=== PATIENT | female | born 1950 | race Caucasian/White ===

== ENCOUNTER 2019-11-22 14:50 | Observation (INO) | payer MEDICARE, OTHER, SELFPAY ==
[2019-11-22 14:52] VITALS: BP 155/73; PULSE 52; RESP 18; O2SAT 97; BMI 28.1
--- NOTE | 2019-11-22 15:08 | ECG_ITS ---
Measurements Intervals Avis Rate: 51 P: 62 AK: 193 QRS: 52 QRSD: 86 T: 79 QT: 410 QTc: 378 SINUS BRADYCARDIA POSSIBLE ANTERIOR MYOCARDIAL INFARCTION, PROBABLY OLD Compared to ECG 12/31/2018 19:50:46 Sinus tachycardia no longer present Myocardial infarct finding still present Electronically Signed On 11-22-2019 17:28:04 TREE GIRDLER by Natalia Stanford M.D. [id number]
[2019-11-22 15:22] LABS: Basophils % 0.5 %; Eosinophils # 0.3 10^3/uL (0.0-0.8); Eosinophils % 5.3 %; Hematocrit 42.8 % (37.0-47.0); Hemoglobin 13.6 g/dL (11.5-15.3); Lymphocytes # 1.8 10^3/uL (0.8-4.8); Lymphocytes % 28.3 %; Mean Corpuscular HGB Conc 31.8 g/dL (30.0-36.0); Mean Corpuscular Volume 94.5 fL (81-99); Mean Platelet Volume 12.1 fL (7.4-10.4); Monocytes # 0.6 10^3/uL (0.2-0.9); Monocytes % 9.1 %; Neutrophils # 3.6 10^3/uL (1.8-7.7); Neutrophils % 56.5 %; Nucleated Red Blood Cells % 0 %; Platelet Count 196 10^3/cmm (130-400); Red Blood Count 4.53 10^6/uL (4.1-5.3); Red Cell Distribution Width 13.2 % (12.1-15.1); White Blood Count 6.4 10^3/uL (4.0-10.0)
[2019-11-22 15:31] LABS: INR 1.02 (0.8-1.2); Partial Thromboplastin Time 27.7 SECONDS (23.9-36.7)
[2019-11-22 15:34] LABS: D Dimer <= 0.27 ug/mIFEU (0-0.59)
[2019-11-22 15:43] LABS: Troponin(5th) Baseline 10 ng/mL (0-10)
[2019-11-22 15:48] LABS: Alanine Aminotransferase 17 U/L (0-33); Albumin Level 4.4 g/dL (3.5-5.2); Alkaline Phosphatase 80 IU/L (35-105); Anion Gap 15.7 (5-19); Aspartate Amino Transferase 22 U/L (0-32); Blood Urea Nitrogen 23 mg/dL (8-23); Calcium 10.4 mg/dL (8.5-10.5); Carbon Dioxide 26 mmol/L (22-29); Chloride 105 mmol/L (98-107); Creatine Phosphokinase 67 U/L (26-192); Globulin 2.7 g/dL (1.3-4.6); Glomerular Filtration Rate 54.8 mL/min (90-130); Glucose 127 mg/dL (65-115); Lipase 34 U/L (13-60); NT Pro B Type Natriuretic Pept 272 pg/mL (0-125); Potassium 3.7 mmol/L (3.5-5.1); Sodium 143 mmol/L (136-145); Total Bilirubin 0.2 mg/dL (0.15-1.2); Total Protein 7.1 g/dL (6.6-8.7)
--- NOTE | 2019-11-22 16:38 | ED_ITS ---
Entered by Shivani Reese, acting as scribe for Brennen Cherry DO Nov 22, 2019 14:50 HPI - General Adult General: Chief complaint: General Medical Stated complaint: left arm pain Time Seen by Provider: 11/22/19 16:38 Source: patient and family Mode of arrival: ambulatory Limitations: no limitations History of Present Illness: HPI narrative: 69 yo female presents with L arm pain. pt states this started today. pt states this is worsened with exertion or movement. pt states this occurred when she had a triple bypass so she wanted to be checked out. pt has a hx of a triple bypass. pt denies any other symptoms at this time. MD complaint: L arm pain Onset (ago): hour(s) (today) Location: upper extremity (L arm) Radiation: non-radiation Severity: mild Pain Consistency: constant Relieving factors: none Exacerbating factors: movement (walking, exertion) Associated symptoms: Reports no associated symptoms; Deny chest pain, dyspnea, malaise, nausea, rash or vomiting Treatments prior to arrival: none Review of Systems General: Reports: 10 or more systems reviewed and unremarkable except in HPI and below Const: Denies: fever, chills, body aches, change in appetite, fatigue or malaise ENMT: Denies: throat pain, ear pain, nasal discharge or nasal congestion Card: Denies: chest pain, edema, shortness of breath on exertion or shortness of breath when lying down Resp: Denies: shortness of breath, productive cough or non-productive cough GI: Denies: abdominal pain, nausea, vomiting, vomiting blood, coffee grounds in vomit, diarrhea, constipation, bloating, blood in stool or black tarry stool : Denies: flank pain, difficulty urinating, painful urination, urinary frequency or urinary urgency Skin/Breast: Denies: rash or itching PFSH ED PFSH: Medical History Chronic diastolic CHF (congestive heart failure) -Has history of chronic diastolic CHF, no acute exacerbation -Last echo done in December 2018 showed ejection fraction of 58%, mild concentric LVH, G1DD, mild mid anterior and lateral wall hypokinesis, mild pulmonary hypertension (52), mild MR, moderate TR, mild [place] -no evidence of edema, fluid overload, BNP-272 CKD (chronic kidney disease), stage II -Has known history of CKD stage II, baseline creatinine within normal limits -mild superimposed ALEXANDER resolved -Continue to monitor renal function Coronary artery disease -Has known history of CAD status post CABG approximately a year ago as noted above Hyperlipidemia -continue statin Mild pulmonary hypertension Pulmonary emboli -had PE shortly after CABG in 12/2018 -has been on AC with Eliquis since then; will discuss with PCP or Dr. Cornell on discontinuation of this as she has been on treatment for > 1 yr -negative D-dimer Surgical History History of heart bypass surgery S/P cholecystectomy Family History Father CAD (coronary artery disease) Mother CAD (coronary artery disease) Congestive heart failure Social History Smoking and tobacco status: never smoked Alcohol intake: never Household members: spouse Physical Exam Const: COMMON NORMALS: no apparent distress GENERAL APPEARANCE: cooperative and comfortable ORIENTATION/CONSCIOUSNESS: Yes awake, Yes oriented to person, Yes oriented to place and Yes oriented to time HENMT: COMMON NORMALS: normocephalic, head/scalp atraumatic, hearing grossly normal bilaterally, external ears normal, EAC's normal, TM's normal bilaterally, nasal mucous membranes and turbinates normal, moist oral mucous membranes and oropharynx normal HEAD & SCALP: normocephalic and atraumatic NOSE: nasal mucous membranes and turbinates normal EXTERNAL EAR: Yes external ears normal EXTERNAL AUDITORY CANAL: EAC's normal TYMPANIC MEMBRANE: TM's normal bilaterally Eye: COMMON NORMALS: PERRL, EOMs intact bilaterally, conjunctivae normal and no scleral icterus CONJUNCTIVA: Yes conjunctivae normal PUPIL: Yes PERRL Neck/C-Spine: COMMON NORMALS: full ROM, no lymphadenopathy, supple and no JVD Lymph: LYMPHATIC: no lymphadenopathy noted and no lymphedema noted Resp: COMMON NORMALS: normal respiratory effort, no retractions, no use of accessory muscles and clear to auscultation bilaterally AUSCULTATION: clear to auscultation bilaterally Cardio: COMMON NORMALS: no JVD, regular rate, regular rhythm and no murmurs RATE: regular rate RHYTHM: regular rhythm GI: COMMON NORMALS: soft to palpation and no hepatosplenomegaly AUSCULTATION: Yes normoactive bowel sounds PALPATION: Yes soft, No tender, No guarding and Yes no hepatosplenomegaly Extremity: COMMON NORMALS: normal to inspection, normal capillary refill, no clubbing, cyanosis or edema, no calf tenderness and no pedal edema LEFT UPPER EXTREMITY: Yes upper arm (tenderness) Neuro: SENSORIUM/ORIENTATION: Yes oriented to person, Yes oriented to place and Yes oriented to time Skin: COMMON NORMALS: no rashes or lesions noted GENERAL SKIN EXAM: no rashes or lesions noted Course ED course: Patient has a moderately elevated heart score with her symptoms being brought on by exertion and think we will go ahead and put her in for rule out PA. Discussed with Dr. Amin she will see the patient inpatient side. Vital Signs: Vital signs: Vital Signs Temperature 97.7 F 11/23/19 17:02 Pulse Rate 47 L 11/23/19 17:02 Respiratory Rate 16 11/23/19 17:02 Blood Pressure 114/65 11/23/19 17:02 Pulse Oximetry 95 11/23/19 17:02 [facility] - General Adult Lab Data: Labs: Lab Results 11/22/19 11/22/19 11/22/19 Range/Units 15:15 15:15 15:15 WBC 6.4 (4.0-10.0) 10^3/ uL RBC 4.53 (4.1-5.3) 10^6/u L Hgb 13.6 (11.5-15.3) g/dL Hct 42.8 (37.0-47.0) % MCV 94.5 (81-99) fL MCH 30.0 (28.0-34.0) pg MCHC 31.8 (30.0-36.0) g/dL RDW 13.2 (12.1-15.1) % Plt Count 196 (130-400) 10^3/c mm MPV 12.1 H (7.4-10.4) fL Neut % (Auto) 56.5 % Lymph % (Auto) 28.3 % [place] % (Auto) 9.1 % Eos % (Auto) 5.3 % Baso % (Auto) 0.5 % Neut # (Auto) 3.6 (1.8-7.7) 10^3/u L Lymph # (Auto) 1.8 (0.8-4.8) 10^3/u L [place] # (Auto) 0.6 (0.2-0.9) 10^3/u L Eos # (Auto) 0.3 (0.0-0.8) 10^3/u L Baso # (Auto) 0.0 (0.0-0.1) 10^3/u L Nucleated RBC % (a uto) 0 % Nucleated RBCs # 0.0 /100WBC PT 13.70 H (10.5-13.3) SECO NDS INR 1.02 (0.8-1.2) APTT 27.7 (23.9-36.7) SECO NDS D-Dimer <= 0.27 (0-0.59) ug/mIFE U Sodium 143 (136-145) mmol/L Potassium 3.7 (3.5-5.1) mmol/L Chloride 105 (98-107) mmol/L Carbon Dioxide 26 (22-29) mmol/L Anion Gap 15.7 (5-19) BUN 23 (8-23) mg/dL Creatinine 1.0 H (0.5-0.9) mg/dL GFR Calculation 54.8 L (90-130) mL/min Glucose 127 H (65-115) mg/dL Calcium 10.4 (8.5-10.5) mg/dL Total Bilirubin 0.2 (0.15-1.2) mg/dL AST 22 (0-32) U/L ALT 17 (0-33) U/L Alkaline Phosphata se 80 (35-105) IU/L Creatine Kinase 67 (26-192) U/L Troponin T Baselin e (0-10) ng/mL Troponin T 120 Min [place] (0-10) ng/mL Delta Troponin T (0-10) ABS# NT-Pro-B Natriuret Pep 272 H (0-125) pg/mL Total Protein 7.1 (6.6-8.7) g/dL Albumin 4.4 (3.5-5.2) g/dL Globulin 2.7 (1.3-4.6) g/dL Lipase 34 (13-60) U/L 02/19/20 02/19/20 Range/Units 15:15 17:09 WBC (4.0-10.0) 10^3/ uL RBC (4.1-5.3) 10^6/u L Hgb (11.5-15.3) g/dL Hct (37.0-47.0) % MCV (81-99) fL MCH (28.0-34.0) pg MCHC (30.0-36.0) g/dL RDW (12.1-15.1) % Plt Count (130-400) 10^3/c mm MPV (7.4-10.4) fL Neut % (Auto) % Lymph % (Auto) % [place] % (Auto) % Eos % (Auto) % Baso % (Auto) % Neut # (Auto) (1.8-7.7) 10^3/u L Lymph # (Auto) (0.8-4.8) 10^3/u L [place] # (Auto) (0.2-0.9) 10^3/u L Eos # (Auto) (0.0-0.8) 10^3/u L Baso # (Auto) (0.0-0.1) 10^3/u L Nucleated RBC % (a uto) % Nucleated RBCs # /100WBC PT (10.5-13.3) SECO NDS INR (0.8-1.2) APTT (23.9-36.7) SECO NDS D-Dimer (0-0.59) ug/mIFE U Sodium (136-145) mmol/L Potassium (3.5-5.1) mmol/L Chloride (98-107) mmol/L Carbon Dioxide (22-29) mmol/L Anion Gap (5-19) BUN (8-23) mg/dL Creatinine (0.5-0.9) mg/dL GFR Calculation (90-130) mL/min Glucose (65-115) mg/dL Calcium (8.5-10.5) mg/dL Total Bilirubin (0.15-1.2) mg/dL AST (0-32) U/L ALT (0-33) U/L Alkaline Phosphata se (35-105) IU/L Creatine Kinase (26-192) U/L Troponin T Baselin e 10 (0-10) ng/mL Troponin T 120 Min [place] 9.02 (0-10) ng/mL Delta Troponin T -0.98 L (0-10) ABS# NT-Pro-B Natriuret Pep (0-125) pg/mL Total Protein (6.6-8.7) g/dL Albumin (3.5-5.2) g/dL Globulin (1.3-4.6) g/dL Lipase (13-60) U/L Discharge Plan Discharge Patient Disposition: Admitted As Inpatient Admit Provider: Rita Amin Condition: Stable Discharge Orders: Discharge Order (Routine); Ordered 11/23/19 Ordered By: Rita Amin Referrals: Fabiola Johnson MD [Primary Care Provider] - 11/29/19 9:00 am (Post-hospital discharge follow up; negative nuclear stress testing; started on Imdur 30 mg daily) Discharge Diet: Cardiac Discharge Activity: Resume usual activity Patient Instructions: Nitroglycerin, Rapid Release (By mouth), Isosorbide Mon onitrate (By mouth), Heart Failure (DC), Coronary Artery Disease (DC), Pulmonary Embolism (DC), Chronic Kidney Disease (DC), Hyperlipidemia (DC), CHF Stoplight Discharge Date/Time: 11/22/19 20:17 Coding Level of Care Code ED Oil Lease Broker for Chg Fwd Exam Problem Focused The documentation recorded by the Hugh hunt Bridget Annette, accurately reflects the service I personally performed and the decisions made by Dilip acosta Curtis L, Nov 22, 2019 14:50
[2019-11-22 16:48] VITALS: BP 170/80; PULSE 61; RESP 18; O2SAT 99
[2019-11-22 16:50] VITALS: RESP 18
--- NOTE | 2019-11-22 16:58 | XR_ITS ---
WS: [id number] XR chest 1V portable [id number] REASON FOR EXAM: dyspnea/cough FINDINGS: Previous sternotomy changes and coronary bypass findings. A hiatal hernia is noted. The lung cary are well-aerated. There is no pneumonia, pleural effusion, pulmonary edema, or mass e ffect. No osseous abnormalities. The hilum and apices are normal. Arteriosclerotic changes in the arch of the aorta are noted. XR/XR chest 1V portable [id number] IMPRESSION: Arteriosclerotic changes Previous coronary bypass findings. Hiatal hernia.
--- NOTE | 2019-11-22 17:08 | ECG_ITS ---
Measurements Intervals Moore Rate: 45 P: 57 TN: 215 QRS: 54 QRSD: 97 T: 110 QT: 424 QTc: 367 SINUS BRADYCARDIA WITH FIRST DEGREE AV BLOCK MODERATE ST DEPRESSION [0.05+ mV ST DEPRESSION] Compared to ECG 12/31/2018 19:50:46 First degree AV block now present ST (T wave) deviation now present Sinus tachycardia no longer present Myocardial infarct finding no longer present Electronically Signed On 11-22-2019 17:29:44 SENIOR ADMINISTRATIVE ASSISTANT by Natalia Stanford M.D. [id number]
[2019-11-22 17:30] LABS: Troponin 5 2HR 9.02 ng/mL (0-10); Troponin 5 2HR Delta -0.98 ABS# (0-10)
--- NOTE | 2019-11-22 18:50 | PM.HP ---
Providers/Chief Complaint Admitting Physician: Rita Amin MD Primary Care Provider: Fabiola Johnson MD Chief Complaint: left arm pain History of Present Illness Mery Green is a 69 year old female with PMHx of CAD s/p CABG (12/2018), provoked PE (on Eliquis), HTN, Hyperlipidemia, GERD, CKD stage 2; presents with complaints of left upper extremity pain with exertion associated with shortness of breath. Patient is known to me from previous admission in December of last year during which time she had presented with similar symptoms and was found to have CAD requiring CABG at which point she was transferred to [facility] where she had her surgery. Her postop recovery was complicated by PE and she has been on anticoagulation with Eliquis since then. She did well with her cardiac rehab and has been trying to stay active since her surgery. She typically takes a walk with her which is typically a long country roads with noted incline at which point she typically gets quite short of breath and had not had any pain until this past Wednesday. She states that she and her had walked approximately a fourth of a mile when she started to have left upper extremity pain. After short while she stopped and they walked back to the house at which point she was able to sit down and rest and her pain resolved. She did not resume her daily walks until earlier today when the same thing happened once she got to an incline. She stopped sooner this time and after resting for a few minutes her pain resolved. He does not seem to have reproduction of this left upper extremity pain when walking on level ground. She contacted her doctor's office in [facility] but was unable to reach them so contacted Dr. Cornell's office and was referred to the ER for further evaluation. She noticed that while taking the stairs on her way to the ER, the left upper extremity discomfort returned. She denies having had any chest pain or discomfort. This shortness of breath that she experiences with her walks is a chronic thing that she has noticed since her surgery. She denies having had any cough, fever/chills, nausea/vomiting, numbness or tingling in her extremities, feeling dizzy or lightheaded, palpitations. She had an episode of reflux approximately 2 days ago but this was relieved after she took antacids and has not recurred since. She is unsure if this is related to her left upper extremity symptoms. She reports compliance with her medication regimen and denies any recent changes. Work-up in the ER showed a normal CBC, normal chemistry except for slight creatinine elevation at 1.0, glucose of 127. Initial troponin is 10, 2-hour troponin is 9.02 with noted negative delta. Chest x-ray is unremarkable per my review the report is pending. EKGs show sinus bradycardia with first-degree AV block. She is currently hemodynamically stable with a heart rate in the 40-50 range. She is currently asymptomatic and resting comfortably on the stretcher during my assessment in the ER. is at bedside. Discussed the possibility that this left upper extremity discomfort is an anginal equivalent that would require further work-up including stress testing which she is agreeable to. Review of Systems Const: Reports: fatigue; Denies: fever, chills, change in appetite or diaphoresis Eyes: Denies: change in vision ENMT: Denies: painful swallowing or dry mouth Card: Reports: shortness of breath on exertion and other (LUE pain with exertion); Denies: chest pain, edema, swelling of feet/ankles or lightheadedness Resp: Denies: shortness of breath or productive cough GI: Reports: constipation (takes laxatives); Denies: abdominal pain, nausea, vomiting, vomiting blood, heartburn/indigestion or blood in stool : Denies: difficulty urinating, painful urination or urinary frequency Musc: Reports: extremity pain (LUE); Denies: back pain Skin/Breast: Denies: rash Neuro: Reports: other (tremor in LUE); Denies: numbness in extremities or weakness in extremities Psych: Denies: anxiety Medications/Allergies Home Medications Medication Instructions Recorded Confirmed Last Taken Type apixaban [Eliquis] 5 mg PO BID 11/22/19 11/22/19 11/22/19 History aspirin [Aspir-81] 81 mg PO DAILY 11/22/19 11/22/19 11/22/19 History calcium carbonate [Calcium 600] 600 mg PO BID 11/22/19 11/22/19 11/22/19 History cholecalciferol (vitamin D3) 25 mcg PO DAILY 11/22/19 11/22/19 11/22/19 History [Vitamin D3] docusate sodium [Colace] 100 mg PO DAILY 11/22/19 11/22/19 11/22/19 History hydrochlorothiazide 25 mg PO DAILY 11/22/19 11/22/19 11/22/19 History metoprolol succinate 25 mg PO DAILY 11/22/19 11/22/19 11/22/19 History omeprazole 20 mg PO DAILY 11/22/19 11/22/19 11/22/19 History rosuvastatin 20 mg PO DAILY 11/22/19 11/22/19 11/22/19 History Allergies Allergy/AdvReac Type Severity Reaction Status Date / Time No Known Allergies Allergy Unverified 11/22/19 09:45 PFSH Acute PFSH: Medical History (Updated 11/22/19 @ 19:02 by Rita Amin MD) Chronic diastolic CHF (congestive heart failure) CKD (chronic kidney disease), stage II Coronary artery disease Hyperlipidemia Mild pulmonary hypertension Pulmonary emboli Post CABG, on anticoagulation with Eliquis Surgical History (Updated 11/22/19 @ 18:56 by Rita Amin MD) History of heart bypass surgery S/P cholecystectomy Family History (Updated 11/22/19 @ 18:56 by Rita Amin MD) Father CAD (coronary artery disease) Mother CAD (coronary artery disease) Congestive heart failure Social History (Updated 11/22/19 @ 18:56 by Rita Amin MD) Smoking and tobacco status: never smoked Alcohol intake: never Substance/Drug Use: never Household members: spouse Vitals/I&O/Wt Last Vital Signs Pulse 61 11/22/19 16:48 Resp 18 11/22/19 16:50 BP 170/80 11/22/19 16:48 Pulse Ox 99 11/22/19 16:48 Weight last 48 hrs Weight 74.389 kg Physical Exam Const: COMMON NORMALS: no apparent distress and oriented x3 GENERAL APPEARANCE: cooperative and comfortable ORIENTATION/CONSCIOUSNESS: Yes awake HENMT: COMMON NORMALS: normocephalic, head/scalp atraumatic, hearing grossly normal bilaterally and moist oral mucous membranes HEAD & SCALP: normocephalic and atraumatic Eye: COMMON NORMALS: PERRL, EOMs intact bilaterally and conjunctivae normal CONJUNCTIVA: Yes conjunctivae normal PUPIL: Yes PERRL Neck/C-Spine: COMMON NORMALS: full ROM GENERAL: Yes normal visual inspection and Yes trachea midline Chest: COMMONS NORMALS: palpation of chest normal CHEST: Yes scars (Healed sternotomy scar) Resp: COMMON NORMALS: normal respiratory effort, no retractions, no use of accessory muscles and clear to auscultation bilaterally EFFORT & INSPECTION: Yes able to speak in complete sentences, Yes symmetric chest movement and No tachypneic AUSCULTATION: clear to auscultation bilaterally Cardio: COMMON NORMALS: regular rate, regular rhythm, S1 normal heart sound, S2 normal heart sound and no murmurs RATE: regular rate RHYTHM: regular rhythm HEART SOUNDS: S1 normal and S2 normal GI: COMMON NORMALS: normal to inspection, nondistended, normoactive bowel sounds, soft to palpation and non-tender PALPATION: Yes soft Back/Pelvis: COMMON NORMALS: thoracic and lumbar spine normal to inspection Extremity: COMMON NORMALS: normal to inspection, full ROM and no clubbing, cyanosis or edema; negative for no pedal edema Neuro: COMMON NORMALS: oriented x3, moves all extremities, no focal motor deficits and no sensory deficits noted Psych: COMMON NORMALS: mental status grossly normal, thought process normal, cooperative, affect normal and speech normal SPEECH: Yes normal speech THOUGHT PROCESS: normal thought process Skin: COMMON NORMALS: no rashes or lesions noted, no jaundice, no petechiae and no mottling GENERAL SKIN EXAM: no rashes or lesions noted Data : 11/22/19 15:15 11/22/19 15:15 A&P Assessment and plan (1) Left upper limb pain: -From description provided seems to be anginal equivalent, she experiences left upper extremity pain when she exerts particularly if walking up an incline or taking the stairs; no chest pain or discomfort. Associated with shortness of breath though this is more chronic -Has known history of CAD status post CABG about a year ago done by Dr. Ulloa at [facility] in [place] -Serial troponins, so far delta is negative -Serial EKGs -Telemetry monitoring -Monitoring of vital signs; intermittently bradycardic -ISRA -Resume aspirin, beta-diana, statin -Stress testing in a.m. keep n.p.o. after midnight Status: Acute Code(s): M79.602 - Pain in left arm (2) Coronary artery disease: -Has known history of CAD status post CABG approximately a year ago as noted above Status: Acute Qualifiers: Coronary Disease-Associated Artery/Lesion type: unspecified vessel or lesion type [place] vs. transplanted heart: [place] heart Associated angina: with other forms of angina Qualified Code(s): I25.118 - Atherosclerotic heart disease of [place] coronary artery with other forms of angina pectoris Code(s): I25.10 - Atherosclerotic heart disease of [place] coronary artery without angina pectoris (3) CKD (chronic kidney disease), stage II: -Has known history of CKD stage II, baseline creatinine within normal limits -mild superimposed ALEXANDER currently -Continue to monitor renal function Status: Acute Code(s): N18.2 - Chronic kidney disease, stage 2 (mild) (4) Chronic diastolic CHF (congestive heart failure): -Has history of chronic diastolic CHF, no acute exacerbation -Last echo done in December 2018 showed ejection fraction of 58%, mild concentric LVH, G1DD, mild mid anterior and lateral wall hypokinesis, mild pulmonary hypertension (52), mild MR, moderate TR, mild [place] -no evidence of edema, fluid overload, BNP-272 Status: Acute Code(s): I50.32 - Chronic diastolic (congestive) heart failure (5) Hyperlipidemia: -resume statin Status: Acute Qualifiers: Hyperlipidemia type: unspecified Qualified Code(s): E78.5 - Hyperlipidemia, unspecified Code(s): E78.5 - Hyperlipidemia, unspecified (6) Pulmonary emboli: -had PE shortly after CABG in 12/2018 -has been on AC with Eliquis since then -negative D-dimer Status: Acute Qualifiers: Pulmonary embolism type: unspecified Chronicity: chronic Acute cor pulmonale presence: unspecified Qualified Code(s): I27.82 - Chronic pulmonary embolism Code(s): I26.99 - Other pulmonary embolism without acute cor pulmonale Additional A&P Information -cardiac diet tonight, NPO after midnight -GI ppx with PPI -DVT ppx not needed as on Eliquis -Dispo: home -Code status: FULL code Attestations Medical Necessity Statement*: Mery Ya Green's hospital stay will be less than 2 midnights for management of anginal equivalent requiring ACS workup including nuclear stress testing in AM. Time Spent in Patient Care: Greater than 35 minutes (>than 50% of time spent in counselling and/or direct pt care on unit). Coding Level of Care Code Acute Gas Load Dispatcher for Chg Fwd Diagnoses Left upper limb pain M79.602 Coronary artery disease I25.118 Coronary Disease-Associated Artery/Lesion type: unspecified vessel or lesion type [place] vs. transplanted heart: [place] heart Associated angina: with other forms of angina CKD (chronic kidney disease), stage II N18.2 Chronic diastolic CHF (congestive heart failure) I50.32 Hyperlipidemia E78.5 Hyperlipidemia type: unspecified Pulmonary emboli I27.82 Pulmonary embolism type: unspecified Chronicity: chronic Acute cor pulmonale presence: unspecified
[2019-11-22 19:48] VITALS: BP 143/72; PULSE 48; RESP 18; O2SAT 96
[2019-11-22 20:16] VITALS: BP 148/62; PULSE 52; RESP 18; O2SAT 97
[2019-11-22 20:33] VITALS: BP 132/66; PULSE 52; RESP 20; TEMP 36.6; O2SAT 95
--- NOTE | 2019-11-22 20:33 | NMCV_ITS ---
NM christine perf SPECT r/s* [id number] Mery Green Age: 69 Gender: F : 1950 Exam Date: 11/23/2019 07:02 Ordering Phys: Rita Amin MD Technologist: JOSH Cervantes Exam Location: [facility] Indications: LT arm pain STRESS TEST Please see separate stress test report in Ephiphany for full findings IMAGE PROTOCOL Rest/Stress 1 Lexiscan Day Radiopharmaceutical Dose (mCi) Administration Site Administered by Rest: Tc-99m 10.9 IV JOSH Tapia Sestamibi Stress:Tc-99m 32.4 IV JOSH Cervantes Sestamicristal Rest: 23-Nov-2019 60 Discovery 630 Stress: 23-Nov-2019 45 Discovery 630 0.4mg Lexiscan. Images obtained in supine and prone position. SPECT RESULTS Technical Quality: Good Raw Data Analysis: Sub-diaphragmatic attenuation artifact. Image Corrections: No attenuation or motion correction applied Summed Stress Score: 12 Summed Rest Score: 9 Summed Difference Score: 3 PERFUSION FINDINGS Small sized perfusion abnormality of moderate severity of basal to mid inferolateral wall on supine stress images with improved tracer uptake on prone stress images. Small sized perfusion abnormality of moderate severity of apical inferior, apical and apical lateral pedroza with subtle reversibility. FUNCTIONAL RESULTS (calculated via Gated SPECT) Stress Image LV EF (%): 72 Stress EDV (mL):61 TID: 1.06 Stress ESV (mL):17 FUNCTIONAL FINDINGS: The left ventricle is normal in size. Transient Ischemia Dilatation of 1.1. There is normal left ventricular systolic function. The left ventricular ejection fraction is normal with a value of 72%. There is normal left ventricular wall thickening. Normal end-diastolic and end-systolic volumes. IMPRESSIONS 1. Small sized perfusion abnormality of basal to mid inferolateral wall on supine stress images with improved tracer uptake on prone stress images. This is likely suggestive of attenuation artifact. 2. Small sized perfusion abnormality of moderate severity of apical inferior, apical and apical lateral pedroza with subtle reversibility. This may represent very small area of ischemia in circumflex artery territory, however very likely is attenuation artifact. 3. Overall left ventricular systolic function is normal without regional wall motion abnormalities. 4. The left ventricular ejection fraction is normal with a value of 72%. 5. Scan indicates low risk for cardiac events. 6. No prior similar studies to compare. Natalia Stanford MD (Electronically Signed) Final Date: 23 November 2019 13:40 S
--- NOTE | 2019-11-22 21:08 | ECG_ITS ---
Measurements Intervals [place] Rate: 53 P: 59 CT: 234 QRS: 57 QRSD: 94 T: 74 QT: 410 QTc: 387 SINUS BRADYCARDIA WITH FIRST DEGREE AV BLOCK MINIMAL ST DEPRESSION [0.025+ mV ST DEPRESSION] Compared to ECG 11/22/2019 17:17:35 No significant changes Electronically Signed On 11-23-2019 14:32:39 [employer] by Natalia Stanford M.D. [id number]
[2019-11-22 21:36] LABS: Troponin 5 6HR 9.74 ng/mL (0-10)
[2019-11-22 21:44] LABS: Troponin 5 6HR Delta -0.26 ng/L (0-12)
[2019-11-23] VITALS: BP 120/64; PULSE 56; RESP 24; TEMP 36.6; O2SAT 96
[2019-11-23 04:00] VITALS: BP 132/67; PULSE 51; RESP 20; TEMP 36.4; O2SAT 96
[2019-11-23 04:14] LABS: Basophils % 0.5 %; Eosinophils # 0.3 10^3/uL (0.0-0.8); Eosinophils % 4.4 %; Hemoglobin 12.7 g/dL (11.5-15.3); Lymphocytes % 33.1 %; Mean Corpuscular HGB Conc 32.6 g/dL (30.0-36.0); Mean Corpuscular Hemoglobin 30.2 pg (28.0-34.0); Mean Corpuscular Volume 92.9 fL (81-99); Mean Platelet Volume 12.3 fL (7.4-10.4); Monocytes # 0.6 10^3/uL (0.2-0.9); Neutrophils # 3.1 10^3/uL (1.8-7.7); Neutrophils % 51.8 %; Nucleated Red Blood Cells % 0 %; Platelet Count 164 10^3/cmm (130-400); Red Cell Distribution Width 13.2 % (12.1-15.1); White Blood Count 5.9 10^3/uL (4.0-10.0)
[2019-11-23 04:42] LABS: Alanine Aminotransferase 13 U/L (0-33); Albumin Level 3.4 g/dL (3.5-5.2); Alkaline Phosphatase 60 IU/L (35-105); Anion Gap 16.4 (5-19); Aspartate Amino Transferase 18 U/L (0-32); Blood Urea Nitrogen 20 mg/dL (8-23); Calcium 9.5 mg/dL (8.5-10.5); Carbon Dioxide 26 mmol/L (22-29); Chloride 107 mmol/L (98-107); Globulin 3.1 g/dL (1.3-4.6); Glomerular Filtration Rate 61.9 mL/min (90-130); Glucose 100 mg/dL (65-115); Potassium 3.4 mmol/L (3.5-5.1); Sodium 146 mmol/L (136-145); Total Bilirubin 0.3 mg/dL (0.15-1.2); Total Protein 6.5 g/dL (6.6-8.7)
--- NOTE | 2019-11-23 06:30 | ECG_ITS ---
NAME OF STUDY: LEXISCAN SESTAMIBI STRESS TEST INDICATION: Angina LEXISCAN STRESS TEST ORDERING PHYSICIAN: Hospitalist CLINICAL INFORMATION: Coronary bypass surgery, recurrent chest pain INTERPRETATION: 1. The patient was brought to the laboratory where Lexiscan was infused over 20 seconds. The resting blood pressure was 181/80. Maximum blood pressure was 181/80. The resting heart rate was 47 beats per minute. The maximum heart rate is 92 beats per minute. 2. The baseline electrocardiogram reveals sinus bradycardia with minor nonspecific T wave changes in the anterior precordial leads and leads I and aVL. 3. With Lexiscan infusion, there were no ST segment changes to suggest ischemia. 4. The patient experienced no symptoms or arrhythmias during the examination. CONCLUSION: 1. Unremarkable Lexiscan infusion. 2. Nuclear imaging to follow. Electronically Signed On 11-23-2019 11:29:26 [employer] by Eddie Cornell M.D. [id number]
--- NOTE | 2019-11-23 08:01 | SUR.PREOP ---
Patient reports no pain or discomfort prior to the start of the procedure.
[2019-11-23] MEDS: regadenoson 0.4 Mg/5 ml Syringe IVP (08:02)
[2019-11-23 08:21] VITALS: BP 155/76; PULSE 69
[2019-11-23] MEDS: hydroCHLOROthiazide 25 mg Tablet PO (10:06)
[2019-11-23] MEDS: pantoprazole DR 40 mg Tablet PO (10:06)
[2019-11-23] MEDS: docusate sodium 100 mg Capsule PO (10:07)
[2019-11-23] MEDS: atorvastatin 40 mg Tablet 80 MG PO (10:07)
[2019-11-23] MEDS: metoprolol succinate ER (24 HR) 25 mg Tablet PO (10:07)
[2019-11-23] MEDS: cholecalciferol (vitamin D3) 1,000 unit Tablet 1000 UNIT PO (10:07)
[2019-11-23] MEDS: apixaban 5 mg Tablet PO (10:07)
[2019-11-23] MEDS: aspirin 81 mg EC Tablet PO (10:07)
[2019-11-23 11:25] VITALS: BP 152/70; PULSE 49; RESP 18; TEMP 36.5; O2SAT 95
[2019-11-23] MEDS: isosorbide mononitrate ER 30 mg Tablet PO (11:33)
[2019-11-23 16:00] VITALS: BP 114/65; PULSE 47; RESP 16; TEMP 36.5; O2SAT 95
--- NOTE | 2019-11-23 16:30 | P.DS_ITS ---
Discharge Providers Date of Admission: 11/22/19 18:23 Date of Discharge: November 23, 2019 Attending Provider at Admission: Rita Amin MD Attending Provider at Discharge: Rita Amin MD Primary Care Provider: Fabiola Johnson MD Diagnoses at Discharge Discharge Diagnosis (1) Left upper limb pain: Status: Acute Problem details: -From description provided seems to be anginal equivalent, she experiences left upper extremity pain when she exerts particularly if walking up an incline or taking the stairs; no chest pain or discomfort. Associated with shortness of breath though this is more chronic -Has known history of CAD status post CABG about a year ago done by Dr. Ulloa at [facility] in [place] -Serial troponins, so far delta is negative -Serial EKGs -Telemetry monitoring -Monitoring of vital signs; intermittently bradycardic -ISRA -continue aspirin, beta-diana, statin -Stress testing in a.m. negative for significant coronary ischemia -will add Imdur (2) Coronary artery disease: Status: Chronic Problem details: -Has known history of CAD status post CABG approximately a year ago as noted above Qualifiers: Coronary Disease-Associated Artery/Lesion type: unspecified vessel or lesion type [place] vs. transplanted heart: [place] heart Associated angina: with other forms of angina Qualified Code(s): I25.118 - Atherosclerotic heart disease of [place] coronary artery with other forms of angina pectoris (3) CKD (chronic kidney disease), stage II: Status: Chronic Problem details: -Has known history of CKD stage II, baseline creatinine within normal limits -mild superimposed ALEXANDER resolved -Continue to monitor renal function (4) Chronic diastolic CHF (congestive heart failure): Status: Chronic Problem details: -Has history of chronic diastolic CHF, no acute exacerbation -Last echo done in December 2018 showed ejection fraction of 58%, mild concentric LVH, G1DD, mild mid anterior and lateral wall hypokinesis, mild pulmonary hypertension (52), mild MR, moderate TR, mild TX -no evidence of edema, fluid overload, BNP-272 (5) Hyperlipidemia: Status: Chronic Problem details: -continue statin Qualifiers: Hyperlipidemia type: unspecified Qualified Code(s): E78.5 - Hyperlipidemia, unspecified (6) Pulmonary emboli: Status: Acute Problem details: -had PE shortly after CABG in 12/2018 -has been on AC with Eliquis since then; will discuss with PCP or Dr. Cornell on d iscontinuation of this as she has been on treatment for > 1 yr -negative D-dimer Qualifiers: Pulmonary embolism type: unspecified Chronicity: chronic Acute cor pulmonale presence: unspecified Qualified Code(s): I27.82 - Chronic pulmonary embolism Other Information Additional DC diagnoses/information: -LAMONT Parkinsonian tremor; has been f/u with Dr. Marinelli Reason for Visit Reason for Visit: Reason For Visit: left arm pain Hospital Course Hospital Course: Patient was admitted to the medical surgical floor and placed on telemetry monitoring. She was kept n.p.o. after midnight for stress testing this morning which is negative for any significant coronary ischemia. She has been pain-free during her hospital stay. She has also been hemodynamically stable, afebrile, ambulatory, tolerating oral intake without difficulty. I have added Imdur as well as as needed nitroglycerin to try to optimize her medication regimen given her pre-existing CAD particularly in the event that the left upper extremity pain is an anginal equivalent. I have discussed potential side effects specifically headache. Patient has a scheduled follow-up appointment with Dr. Cornell in January which she is encouraged to keep. She is to follow-up with her primary care physician in the interim, preferably within 1 week. She is counseled on need to seek medical attention immediately should any of her symptoms worsen or recur. Discharge Summary: -Patient to follow-up with her primary care physician within 1 week -Patient to keep her scheduled appointment with Dr. Cornell in January Physical Exam Const: COMMON NORMALS: no apparent distress and oriented x3 GENERAL APPEARANCE: cooperative and comfortable ORIENTATION/CONSCIOUSNESS: Yes awake HENMT: COMMON NORMALS: normocephalic, head/scalp atraumatic, hearing grossly normal bilaterally and moist oral mucous membranes HEAD & SCALP: normocephalic and atraumatic Eye: COMMON NORMALS: PERRL, EOMs intact bilaterally and conjunctivae normal CONJUNCTIVA: Yes conjunctivae normal PUPIL: Yes PERRL Neck/C-Spine: COMMON NORMALS: full ROM GENERAL: Yes normal visual inspection and Yes trachea midline Chest: COMMONS NORMALS: palpation of chest normal CHEST: Yes scars (Healed sternotomy scar) Resp: COMMON NORMALS: normal respiratory effort, no retractions, no use of accessory muscles and clear to auscultation bilaterally EFFORT & INSPECTION: Yes able to speak in complete sentences, Yes symmetric chest movement and No tachypneic AUSCULTATION: clear to auscultation bilaterally Cardio: COMMON NORMALS: regular rate, regular rhythm, S1 normal heart sound, S2 normal heart sound and no murmurs RATE: regular rate RHYTHM: regular rhythm HEART SOUNDS: S1 normal and S2 normal GI: COMMON NORMALS: normal to inspection, nondistended, normoactive bowel sounds, soft to palpation and non-tender PALPATION: Yes soft Back/Pelvis: COMMON NORMALS: thoracic and lumbar spine normal to inspection Extremity: COMMON NORMALS: normal to inspection, full ROM and no clubbing, cyanosis or edema; negative for no pedal edema Neuro: COMMON NORMALS: oriented x3, moves all extremities, no focal motor deficits and no sensory deficits noted Psych: COMMON NORMALS: mental status grossly normal, thought process normal, cooperative, affect normal and speech normal SPEECH: Yes normal speech THOUGHT PROCESS: normal thought process Skin: COMMON NORMALS: no rashes or lesions noted, no jaundice, no petechiae and no mottling GENERAL SKIN EXAM: no rashes or lesions noted Discharge Data Data Completed and Pending: Completed Studies During Hospitalization Category Date Time Status Cardiac Stress Te st MIBI [Sestamibi Stress Test Reque st Exams 11/23/19 06:30 Completed ] Routine XR chest 1V felicity ble [id number] Stat Exams 11/22/19 16:58 Completed NM christine perf SPECT r/s* [id number] Routin e Nuc Med 11/22/19 20:33 Completed Labs from last 24 hours 11/23/19 11/23/19 11/22/19 03:33 03:33 21:15 WBC 5.9 RBC 4.20 Hgb 12.7 Hct 39.0 MCV 92.9 MCH 30.2 MCHC 32.6 RDW 13.2 Plt Count 164 MPV 12.3 H Neut % (Auto) 51.8 Lymph % (Auto) 33.1 Leake % (Auto) 10.0 Eos % (Auto) 4.4 Baso % (Auto) 0.5 Neut # (Auto) 3.1 Lymph # (Auto) 2.0 Leake # (Auto) 0.6 Eos # (Auto) 0.3 Baso # (Auto) 0.0 Nucleated RBC % (a uto) 0 Nucleated RBCs # 0.0 Sodium 146 H Potassium 3.4 L Chloride 107 Carbon Dioxide 26 Anion Gap 16.4 BUN 20 Creatinine 0.9 GFR Calculation 61.9 L Glucose 100 Calcium 9.5 Total Bilirubin 0.3 AST 18 ALT 13 Alkaline Phosphata se 60 Troponin I 6 Hour 9.74 Troponin I Hi Sens Del -0.26 L Troponin T 120 Min [place] Delta Troponin T Total Protein 6.5 L Albumin 3.4 L Globulin 3.1 11/22/19 17:09 WBC RBC Hgb Hct MCV MCH MCHC RDW Plt Count MPV Neut % (Auto) Lymph % (Auto) [place]ake % (Auto) Eos % (Auto) Baso % (Auto) Neut # (Auto) Lymph # (Auto) [place] # (Auto) Eos # (Auto) Baso # (Auto) Nucleated RBC % (a uto) Nucleated RBCs # Sodium Potassium Chloride Carbon Dioxide Anion Gap BUN Creatinine GFR Calculation Glucose Calcium Total Bilirubin AST ALT Alkaline Phosphata se Troponin I 6 Hour Troponin I Hi Sens Del Troponin T 120 Min [place] 9.02 Delta Troponin T -0.98 L Total Protein Albumin Globulin Vitals: Last Vital Signs Temp 97.7 F 11/23/19 16:00 Pulse 47 L 11/23/19 16:00 Resp 16 11/23/19 16:00 BP 114/65 11/23/19 16:00 Pulse Ox 95 11/23/19 16:00 Discharge Plan Discharge Patient Disposition: Home, Self-Care Condition: Stable Prescriptions: New isosorbide mononitrate 30 mg Tablet Extended Release 24 Hr 30 mg PO DAILY 30 Days Qty: 30 RF: 0 Nitrostat 0.4 mg Tablet, Sublingual 0.4 mg sublingual Q5M PRN (Reason: Chest Pain) Qty: 30 RF: 0 Continued Aspir-81 81 mg Tablet,Delayed Release (Dr/Ec) 81 mg PO DAILY RF: 0 Calcium 600 600 mg calcium (1,500 mg) Tablet 600 mg PO BID RF: 0 Colace 100 mg Capsule 100 mg PO DAILY RF: 0 omeprazole 20 mg Capsule,Delayed Release(Dr/Ec) 20 mg PO DAILY RF: 0 hydrochlorothiazide 25 mg Tablet 25 mg PO DAILY RF: 0 metoprolol succinate 25 mg Tablet Extended Release 24 Hr 25 mg PO DAILY RF: 0 rosuvastatin 20 mg Tablet 20 mg PO DAILY RF: 0 Vitamin D3 25 mcg (1,000 unit) Tablet 25 mcg PO DAILY RF: 0 Eliquis 5 mg Tablet 5 mg PO BID RF: 0 Discharge Orders: Discharge Order (Routine); Ordered 11/23/19 Ordered By: Rita Amin Referrals: Fabiola Johnson MD [Primary Care Provider] - 4-7 days (Post-hospital discharge follow up; negative nuclear stress testing; started on Imdur 30 mg daily) Discharge Diet: Cardiac Discharge Activity: Resume usual activity Discharge Attestations Time Spent in Discharge Care*: greater than 30 min Specific Discharge Activities: Specific discharge activities: educating patient, educating and/or supporting family/caregiver, discussing with pcp/other providers, discussing with case management associate/social workers/dc planners, documenting/other paperwork and evaluating patient/reviewing data Status at Discharge: Cognitive status at discharge: cognitively intact , Behavioral status at discharge: cooperative , Functional status at discharge: independent ambulation Overall status at discharge: patient is back to baseline Quality Metrics Clinical Quality Measures During this hospital stay, did patient experience: None Coding Level of Care Code Acute Econometrics Professor for Chg Fwd Diagnoses Left upper limb pain M79.602 Coronary artery disease I25.118 Coronary Disease-Associated Artery/Lesion type: unspecified vessel or lesion type [place] vs. transplanted heart: [place] heart Associated angina: with other forms of angina CKD (chronic kidney disease), stage II N18.2 Chronic diastolic CHF (congestive heart failure) I50.32 Hyperlipidemia E78.5 Hyperlipidemia type: unspecified Pulmonary emboli I27.82 Pulmonary embolism type: unspecified Chronicity: chronic Acute cor pulmonale presence: unspecified
[2019-11-23 17:02] VITALS: BP 114/65; PULSE 47; RESP 16; TEMP 36.5; O2SAT 95
== END 2019-11-23 15:30 | disposition home or self-care (01) ==
LOC: ER 16:57 → MEDSURG 19:49
PROVIDERS: Family Medicine; Admitting Provider Family Medicine; Emergency Provider Family Medicine; Family Provider Family Medicine; PCP Family Medicine; Visit Provider Family Medicine
DX: M79.602 Pain in left arm (principal); I25.118 Atherosclerotic heart disease of native coronary artery with other forms of angina pectoris; I13.0 Hypertensive heart and chronic kidney disease with heart failure and stage 1 through stage 4 chronic kidney disease, or unspecified chronic kidney disease; N18.2 Chronic kidney disease, stage 2 (mild); I50.32 Chronic diastolic (congestive) heart failure; E78.5 Hyperlipidemia, unspecified; I27.82 Chronic pulmonary embolism; Z95.1 Presence of aortocoronary bypass graft; Z79.01 Long term (current) use of anticoagulants; Z79.82 Long term (current) use of aspirin; Z82.49 Family history of ischemic heart disease and other diseases of the circulatory system
CPT/HCPCS: 12345; 36415; 71045; 78452; 80053; 82550; 83690; 83880; 84484; 85025; 85378; 85610; 85730; 93005; 93017; 96374; 96375; 99283; 99285; A9500; G0378; J2785

== ENCOUNTER → 2020-03-12 13:42 | Outpatient (BNVA) | payer MEDICARE, OTHER, SELFPAY | PROVIDERS: Family Provider Family Medicine; PCP Family Medicine; Visit Provider Obstetrics & Gynecology | DX: N85.4 Malposition of uterus (principal); N85.8 Other specified noninflammatory disorders of uterus | CPT/HCPCS: 76830 ==

== ENCOUNTER → 2020-07-08 08:27 | Outpatient (BNVA) | payer MEDICARE, OTHER, SELFPAY | PROVIDERS: Family Provider Family Medicine; PCP Family Medicine; Visit Provider Family Medicine | DX: I10 Essential (primary) hypertension (principal); E78.5 Hyperlipidemia, unspecified | CPT/HCPCS: 80053; 80061; 85025 ==

== ENCOUNTER 2021-01-07 10:37 | Outpatient (CLI) | payer MEDICARE, OTHER, SELFPAY ==
--- NOTE | 2021-01-07 10:41 | MM_ITS ---
WS: [id number] BILATERAL SCREENING DIGITAL MAMMOGRAM WITH CAD HISTORY: SCREENING COMPARISON: 09/08/2018 and 08/09/2018 and 03/31/2017 Bilateral CC and MLO views submitted. Computer aided detection analyzed. Breast composition: The breasts are heterogeneously dense, which may obscure small masses. No suspici ous masses, microcalcifications or architectural distortion. MM/[place] [id number] IMPRESSION: BI-RADS: 1-Negative FOLLOW UP: 1 Year Follow-up
== END 2021-01-07 10:38 | disposition home or self-care (01) ==
LOC: RADSHAW 10:39
PROVIDERS: PCP Family Medicine; Visit Provider Obstetrics & Gynecology
DX: Z12.31 Encounter for screening mammogram for malignant neoplasm of breast (principal)
CPT/HCPCS: 77067

== ENCOUNTER → 2021-01-08 09:57 | Outpatient (BNVA) | payer MEDICARE, OTHER, SELFPAY | PROVIDERS: PCP Family Medicine; Visit Provider Family Medicine | DX: I10 Essential (primary) hypertension (principal); I25.118 Atherosclerotic heart disease of native coronary artery with other forms of angina pectoris; N18.2 Chronic kidney disease, stage 2 (mild) | CPT/HCPCS: 80053; 80061; 84443; 85025 ==

== ENCOUNTER → 2021-01-13 11:33 | Outpatient (BNVA) | payer MEDICARE, OTHER, SELFPAY | PROVIDERS: PCP Family Medicine; Visit Provider Family Medicine | DX: M79.672 Pain in left foot (principal); M77.32 Calcaneal spur, left foot | CPT/HCPCS: 73630 ==

== ENCOUNTER → 2021-04-21 11:20 | Outpatient (BNVA) | payer MEDICARE, OTHER, SELFPAY | PROVIDERS: PCP Family Medicine; Visit Provider Family Medicine | DX: E78.5 Hyperlipidemia, unspecified (principal); I10 Essential (primary) hypertension | CPT/HCPCS: 80053; 80061; 85025 ==

== ENCOUNTER → 2021-07-18 08:48 | Outpatient (BNVA) | payer MEDICARE, OTHER, SELFPAY | PROVIDERS: PCP Family Medicine; Visit Provider Family Medicine | DX: I25.118 Atherosclerotic heart disease of native coronary artery with other forms of angina pectoris (principal); N18.2 Chronic kidney disease, stage 2 (mild); E78.5 Hyperlipidemia, unspecified; I12.9 Hypertensive chronic kidney disease with stage 1 through stage 4 chronic kidney disease, or unspecified chronic kidney disease | CPT/HCPCS: 80053; 80061; 82306; 85025 ==

== ENCOUNTER 2021-10-10 09:53 | Outpatient (CLI) | payer MEDICARE, OTHER, SELFPAY ==
--- NOTE | 2021-10-10 10:15 | USCV_ITS ---
Mery Green Age: 71 Gender: F : 1950 Exam Date: 10/10/2021 10:18 Ordering Phys: Joshua Mari M.D ([email or web address]) Technologist: Kathrine Bernal [place] [facility] [place]: SOB BP: 13 / 78 HR: 48 Rhythm: Sinus Technical Quality: Technically difficult study MEASUREMENTS (Male / Female) Normal Values 2D ECHO LV Diastolic Diameter PLAX 4.3 cm 4.2 - 5.9 / 3.9 - 5.3 cm LV Systolic Diameter PLAX 2.7 cm IVS Diastolic Thickness 1.1 cm 0.6 - 1.0 / 0.6 - 0.9 cm IVS Systolic Thickness 1.8 cm LVPW Diastolic Thickness 1.3 cm 0.6 - 1.0 / 0.6 - 0.9 cm LVPW Systolic Thickness 1.7 cm LVOT Diameter 2.0 cm LV Ejection Fraction 2D Teich 68.1 % LV Ejection Fraction MOD 2C 61.5 % LV Ejection Fraction 2C AL 60.6 % LA Diameter 3.0 cm LA Width 3.8 cm LA Height 3.9 cm RA Width 3.2 cm RA Height 3.9 cm Aorta at Sinotubular Diameter 2.1 cm M-MODE MV E Point Septal Separation 0.2 cm DOPPLER AV Peak Velocity 131.0 cm/s LVOT Peak Velocity 117.0 cm/s AV Area Cont Eq vti 2.7 cm squared AV Area Cont Eq pk 2.8 cm squared MV Peak Velocity 124.0 cm/s MV Area PHT 2.5 cm squared Mitral E to A Ratio 1.0 MV E' Velocity 57.0 cm/s Mitral E to MV E' Ratio 12.4 Mitral E to LV E' Lateral Ratio 9.2 Mitral E to LV E' Septal Ratio 19.0 TR Peak Velocity 207.9 cm/s TR Peak Gradient 17.3 mmHg TR Mean Velocity 170.4 cm/s TR Mean Gradient 13.0 mmHg TR Velocity Time Integral 69.6 cm TV Peak E Velocity 60.0 cm/s PV Peak Velocity 106.0 cm/s RV Acceleration Time 0.0 s RV Ejection Time 0.4 s RV AcT/ET 0.1 FINDINGS Left Ventricle Normal left ventricular size. LV systolic function is normal with EF of 55-60%. Septal motion is consistent with conduction abnormalities. Grade 1 diastolic dysfunction Right Ventricle The right ventricle is normal in size and function. Right Atrium The right atrium is normal in size. Left Atrium The left atrium is dilated Mitral Valve Structurally normal mitral valve without significant stenosis or prolapse. There is trace mitral regurgitation. Aortic Valve Aortic valve is thickened without significant stenosis. There is mild aortic regurgitation. Tricuspid Valve Structurally normal tricuspid valve without significant stenosis or regurgitation. Insufficient TR jet to calculate RVSP Pulmonic Valve Structurally normal pulmonic valve without significant stenosis. There is mild pulmonic regurgitation. Pericardium Normal pericardium without effusion. Aorta Normal ascending aorta dimension. CONCLUSIONS LV systolic function is normal with EF of 55-60% Grade 1 diastolic dysfunction Left atrial enlargement noted Trace mitral regurgitation Mild aortic regurgitation Mild pulmonic regurgitation Compared to prior echocardiogram from 01/01/2019, no significant changes are noted Joshua Mari MD (Electronically Signed) Final Date: 13 October 2021 11:00 S
== END 2021-10-10 09:54 | disposition home or self-care (01) ==
LOC: RAD 09:56
PROVIDERS: PCP Family Medicine; Visit Provider Internal Medicine
DX: R06.02 Shortness of breath (principal); I08.0 Rheumatic disorders of both mitral and aortic valves
CPT/HCPCS: 93306

== ENCOUNTER → 2022-01-21 13:34 | Outpatient (BNVA) | payer MEDICARE, OTHER, SELFPAY | PROVIDERS: PCP Family Medicine; Visit Provider Internal Medicine | DX: I13.0 Hypertensive heart and chronic kidney disease with heart failure and stage 1 through stage 4 chronic kidney disease, or unspecified chronic kidney disease (principal); N18.2 Chronic kidney disease, stage 2 (mild); I50.32 Chronic diastolic (congestive) heart failure; E78.5 Hyperlipidemia, unspecified; I25.118 Atherosclerotic heart disease of native coronary artery with other forms of angina pectoris; Z79.82 Long term (current) use of aspirin | CPT/HCPCS: 99214 ==

== ENCOUNTER → 2022-01-30 09:19 | Outpatient (BNVA) | payer MEDICARE, OTHER, SELFPAY | PROVIDERS: PCP Family Medicine; Visit Provider Family Medicine | DX: E55.9 Vitamin D deficiency, unspecified (principal); E78.5 Hyperlipidemia, unspecified; I10 Essential (primary) hypertension | CPT/HCPCS: 80053; 80061; 82306; 85025 ==

== ENCOUNTER → 2022-05-08 10:09 | Outpatient (BNVA) | payer MEDICARE, OTHER, SELFPAY | PROVIDERS: PCP Family Medicine; Visit Provider Family Medicine | DX: E55.9 Vitamin D deficiency, unspecified (principal); I10 Essential (primary) hypertension; E78.5 Hyperlipidemia, unspecified | CPT/HCPCS: 80053; 80061; 82306; 85025 ==

== ENCOUNTER → 2022-05-12 13:22 | Outpatient (BNVA) | payer MEDICARE, OTHER, SELFPAY | PROVIDERS: PCP Family Medicine; Visit Provider Family Medicine | DX: Z12.31 Encounter for screening mammogram for malignant neoplasm of breast (principal); Z12.11 Encounter for screening for malignant neoplasm of colon; R32 Unspecified urinary incontinence; G25.0 Essential tremor; I10 Essential (primary) hypertension; E78.5 Hyperlipidemia, unspecified; K21.9 Gastro-esophageal reflux disease without esophagitis; R53.83 Other fatigue; R00.1 Bradycardia, unspecified | CPT/HCPCS: 82607; 83540; 84443; 85025 ==

== ENCOUNTER 2022-05-19 09:33 | Outpatient (CLI) | payer MEDICARE, OTHER, SELFPAY ==
--- NOTE | 2022-05-19 09:44 | MM_ITS ---
WS: [id number] VIEWS: MLO and CC views both breasts. 3D digital tomosynthesis is also included in this exam. Comparison made with prior exam of 10/29/2014, 10/31/2015, 03/31/2017, 08/09/2018, 01/07/2021.. Findings: There was no sign of mass, architectural distortion or suspicious calcification in either breast. He terogeneously dense MM/[place] [id number] Impression: BI-RADS: 2-Benign FOLLOW-UP: 1 Year Follow-up This mammogram was also analyzed by the Computer Aided Detection System R2 Imag e Senior Accounting Analyst.
== END 2022-05-19 09:34 | disposition home or self-care (01) ==
PROVIDERS: PCP Family Medicine; Visit Provider Family Medicine
DX: Z12.31 Encounter for screening mammogram for malignant neoplasm of breast (principal)
CPT/HCPCS: 77063; 77067

== ENCOUNTER → 2022-07-22 14:47 | Outpatient (BNVA) | payer MEDICARE, OTHER, SELFPAY | PROVIDERS: PCP Family Medicine; Visit Provider Internal Medicine | DX: I13.0 Hypertensive heart and chronic kidney disease with heart failure and stage 1 through stage 4 chronic kidney disease, or unspecified chronic kidney disease (principal); N18.2 Chronic kidney disease, stage 2 (mild); I50.32 Chronic diastolic (congestive) heart failure; I25.118 Atherosclerotic heart disease of native coronary artery with other forms of angina pectoris; Z95.1 Presence of aortocoronary bypass graft; R00.1 Bradycardia, unspecified; E78.5 Hyperlipidemia, unspecified | CPT/HCPCS: 99213; 99214 ==

== ENCOUNTER → 2022-08-07 09:00 | Outpatient (BNVA) | payer MEDICARE, OTHER, SELFPAY | PROVIDERS: PCP Family Medicine; Visit Provider Family Medicine | DX: E55.9 Vitamin D deficiency, unspecified (principal); I10 Essential (primary) hypertension; E78.5 Hyperlipidemia, unspecified | CPT/HCPCS: 80053; 80061; 82306; 85025 ==

== ENCOUNTER → 2022-11-06 10:06 | Outpatient (BNVA) | payer MEDICARE, OTHER, SELFPAY | PROVIDERS: PCP Family Medicine; Visit Provider Family Medicine | DX: E55.9 Vitamin D deficiency, unspecified (principal); I10 Essential (primary) hypertension; E78.5 Hyperlipidemia, unspecified | CPT/HCPCS: 80053; 80061; 82306; 84443; 85025 ==

== ENCOUNTER → 2022-11-20 16:07 | Outpatient (BNVA) | payer MEDICARE, OTHER, SELFPAY | PROVIDERS: PCP Family Medicine; Visit Provider Obstetrics & Gynecology | DX: N84.1 Polyp of cervix uteri (principal) | CPT/HCPCS: 88305 ==

== ENCOUNTER → 2023-01-14 15:18 | Outpatient (BNVA) | payer MEDICARE, OTHER, SELFPAY | PROVIDERS: PCP Family Medicine; Visit Provider Obstetrics & Gynecology | DX: N88.9 Noninflammatory disorder of cervix uteri, unspecified (principal) | CPT/HCPCS: 76830 ==

== ENCOUNTER → 2023-01-20 15:10 | Outpatient (BNVA) | payer MEDICARE, OTHER, SELFPAY | PROVIDERS: PCP Family Medicine; Visit Provider Internal Medicine | DX: I13.0 Hypertensive heart and chronic kidney disease with heart failure and stage 1 through stage 4 chronic kidney disease, or unspecified chronic kidney disease (principal); N18.2 Chronic kidney disease, stage 2 (mild); I50.32 Chronic diastolic (congestive) heart failure; E78.5 Hyperlipidemia, unspecified; I25.118 Atherosclerotic heart disease of native coronary artery with other forms of angina pectoris; R00.1 Bradycardia, unspecified | CPT/HCPCS: 99214 ==

== ENCOUNTER → 2023-02-01 09:37 | Outpatient (BNVA) | payer MEDICARE, OTHER, SELFPAY | PROVIDERS: PCP Family Medicine; Visit Provider Family Medicine | DX: R00.1 Bradycardia, unspecified (principal); I10 Essential (primary) hypertension | CPT/HCPCS: 80053; 80061; 85025 ==

== ENCOUNTER → 2023-06-24 11:36 | Outpatient (BNVA) | payer MEDICARE, OTHER, SELFPAY | PROVIDERS: PCP Family Medicine; Visit Provider Family Medicine | DX: E55.9 Vitamin D deficiency, unspecified (principal); E78.5 Hyperlipidemia, unspecified; I10 Essential (primary) hypertension; Z79.899 Other long term (current) drug therapy | CPT/HCPCS: 80053; 80061; 82306; 84443; 85025 ==

== ENCOUNTER → 2023-07-23 09:04 | Outpatient (BNVA) | payer MEDICARE, OTHER, SELFPAY | PROVIDERS: PCP Family Medicine; Visit Provider Internal Medicine | DX: R06.02 Shortness of breath (principal); E78.5 Hyperlipidemia, unspecified; I25.118 Atherosclerotic heart disease of native coronary artery with other forms of angina pectoris; R00.1 Bradycardia, unspecified; I13.0 Hypertensive heart and chronic kidney disease with heart failure and stage 1 through stage 4 chronic kidney disease, or unspecified chronic kidney disease; N18.2 Chronic kidney disease, stage 2 (mild); I50.32 Chronic diastolic (congestive) heart failure | CPT/HCPCS: 99214 ==

== ENCOUNTER → 2023-08-20 09:41 | Outpatient (BNVA) | payer MEDICARE, OTHER, SELFPAY | PROVIDERS: PCP Family Medicine; Visit Provider Nurse Practitioner Family | DX: I13.0 Hypertensive heart and chronic kidney disease with heart failure and stage 1 through stage 4 chronic kidney disease, or unspecified chronic kidney disease (principal); N18.2 Chronic kidney disease, stage 2 (mild); I50.32 Chronic diastolic (congestive) heart failure | CPT/HCPCS: 99213 ==

== ENCOUNTER 2023-08-30 09:10 | Outpatient (CLI) | payer MEDICARE, OTHER, SELFPAY ==
--- NOTE | 2023-08-30 09:15 | MM_ITS ---
WS: [id number] SCREENING DIGITAL TOMOSYNTHESIS MAMMOGRAM WITH CAD HISTORY: SCREENING COMPARISON: 05/19/2022 and 01/07/2021 Bilateral CC and MLO with tomosynthesis views submitted. Synthetic mammography reviewed. Computer aid ed detection analyzed. Breast composition: The breasts are heterogeneously dense, which may obscure small masses. No suspici ous masses, microcalcifications or architectural distortion. IMPRESSION: MM/[place] [id number] BI-RADS: 1-Negative FOLLOW UP: 1 Year Follow-up
== END 2023-08-30 09:11 | disposition home or self-care (01) ==
LOC: RAD 09:10
PROVIDERS: PCP Family Medicine; Visit Provider Family Medicine
DX: Z12.31 Encounter for screening mammogram for malignant neoplasm of breast (principal)
CPT/HCPCS: 77063; 77067

== ENCOUNTER → 2023-09-17 10:01 | Outpatient (BNVA) | payer MEDICARE, OTHER, SELFPAY | PROVIDERS: PCP Family Medicine; Visit Provider Family Medicine | DX: I10 Essential (primary) hypertension (principal) | CPT/HCPCS: 85025 ==

== ENCOUNTER → 2023-09-22 09:14 | Outpatient (BNVA) | payer MEDICARE, OTHER, SELFPAY | PROVIDERS: PCP Family Medicine; Visit Provider Family Medicine | DX: I10 Essential (primary) hypertension (principal); E78.5 Hyperlipidemia, unspecified | CPT/HCPCS: 80053; 80061 ==

== ENCOUNTER → 2023-12-27 09:07 | Outpatient (BNVA) | payer MEDICARE, OTHER, SELFPAY | PROVIDERS: PCP Family Medicine; Visit Provider Family Medicine | DX: E55.9 Vitamin D deficiency, unspecified (principal); I10 Essential (primary) hypertension | CPT/HCPCS: 80053; 80061; 82306; 85025 ==

== ENCOUNTER → 2024-02-11 09:10 | Outpatient (BNVA) | payer MEDICARE, OTHER, SELFPAY | PROVIDERS: PCP Family Medicine; Visit Provider Nurse Practitioner Family | DX: I25.118 Atherosclerotic heart disease of native coronary artery with other forms of angina pectoris (principal); I13.0 Hypertensive heart and chronic kidney disease with heart failure and stage 1 through stage 4 chronic kidney disease, or unspecified chronic kidney disease; N18.2 Chronic kidney disease, stage 2 (mild); I50.32 Chronic diastolic (congestive) heart failure | CPT/HCPCS: 99214 ==

== ENCOUNTER 2024-04-04 07:45 | Outpatient (CLI) | payer MEDICARE, OTHER, SELFPAY ==
--- NOTE | 2024-04-04 | ECG_ITS ---
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
--- NOTE | 2024-04-04 08:02 | NMCV_ITS ---
NM christine perf SPECT r/s* [id number] Mery Green Age: 74 Gender: F : 1950 Exam Date: 04/04/2024 08:02 Ordering Phys: Zoë Gomez Technologist: JOSH Cervantes Exam Location: [facility] Indications: CP, dyspnea STRESS TEST Please see separate stress test report in [facility]iphany for full findings IMAGE PROTOCOL Rest/Stress 1 Lexiscan Day Radiopharmaceutical Dose (mCi) Administration Site Administered by Rest: Tc-99m 10.7 IV JOSH Cervantes Sestamibi Stress:Tc-99m 32.7 IV JOSH Cervantes Sestamibi Rest: 04-Apr-2024 60 Discovery 630 Stress: 04-Apr-2024 30 Discovery 630 0.4mg Lexiscan. Images obtained in supine and prone position. SPECT RESULTS Technical Quality: Good Raw Data Analysis: Normal Image Corrections: No attenuation or motion correction applied Summed Stress Score: 14 Summed Rest Score: 7 Summed Difference Score: 7 PERFUSION FINDINGS There is a inconsistent, mostly reversible, large area of perfusion defect noted in the inferolateral wall. This is consistent with attenuation artifact as defect improves on prone imaging versus medium sized area of prior infarct with large kiana-infarct ischemia in left circumflex artery territory. Clinical correlation is required. FUNCTIONAL RESULTS (calculated via Gated SPECT) Stress Image LV EF (%): 80 Stress EDV (mL):60 TID: 1.03 Stress ESV (mL):12 FUNCTIONAL FINDINGS: There is normal left ventricular systolic function. IMPRESSIONS 1. Attenuation artifact versus medium sized area of prior infarct with large area of kiana-infarct ischemia in left circumflex artery territory.Clinical correlation is required. 2. LV systolic function is normal. Joshua Mari MD (Electronically Signed) Final Date: 09 April 2024 20:04 S
[2024-04-04 08:03] VITALS: BMI 27.8
[2024-04-04] MEDS: regadenoson 0.4 Mg/5 ml Syringe 0.400000000000000022 MG IVP (09:30)
[2024-04-04 10:03] VITALS: BP 148/74; PULSE 77
== END 2024-04-04 07:46 | disposition home or self-care (01) ==
PROVIDERS: PCP Family Medicine; Visit Provider Nurse Practitioner Family
DX: I25.118 Atherosclerotic heart disease of native coronary artery with other forms of angina pectoris (principal); I10 Essential (primary) hypertension; R94.39 Abnormal result of other cardiovascular function study
CPT/HCPCS: 36415; 78452; 93017; 96374; A9500; J2785

== ENCOUNTER → 2024-04-10 12:05 | Outpatient (BNVA) | payer MEDICARE, OTHER, SELFPAY | PROVIDERS: PCP Family Medicine; Visit Provider Family Medicine | DX: E55.9 Vitamin D deficiency, unspecified (principal); Z79.899 Other long term (current) drug therapy | CPT/HCPCS: 80053; 80061; 82306; 82607; 83735; 85025 ==

== ENCOUNTER → 2024-04-14 09:45 | Outpatient (BNVA) | payer MEDICARE, OTHER, SELFPAY | PROVIDERS: PCP Family Medicine; Visit Provider Nurse Practitioner Family | DX: R94.39 Abnormal result of other cardiovascular function study (principal) | CPT/HCPCS: 99214 ==

== ENCOUNTER 2024-05-02 07:20 | Outpatient (CLI) | payer MEDICARE, OTHER, SELFPAY ==
[2024-05-02] VITALS (7 sets, daily range): BP systolic 134–180; BP diastolic 67–88; PULSE 60–77; RESP 16–22; TEMP 36.3–36.8; O2SAT 96–100; BMI 27.1; BMI 30.7
--- NOTE | 2024-05-02 07:30 | XACV_ITS ---
Exam Room: [id number] Ht: 163 cm Wt: 72 kg BSA: 1.82 m2 Gender: Female : 1950 Any Known Allergies: Other Exam Priority: Routine Procedure(s): Procedure Description: Diagnostic procedure Procedure Description: PCI procedure Procedure Description: Left Heart Catheterization Procedure Description: Aortogram Procedure Description: Venous Graft Catheterization Procedure Description: VILLEGAS Graft Catheterization Procedure Description: Drug Eluting Coronary Stent Procedure Description: PTCA Procedure Description: Miscellaneous Procedure Description: ACT Procedure Description: Coronary Angiography Diagnostic Cath Status: Elective Diagnostic Findings * INDICATION: 74-year-old woman with past medical history of coronary artery disease s/p CABG in 2019 who has been having chest discomfort episodes with left arm pain with exertion. Has noted significant worsening recently. Had a stress test that was abnormal. Plan for coronary angiogram with possible PCI. * Left Main has significant distal 70% stenosis. * Left Anterior Descending has chronic total occlusion in proximal to mid segment. Gives rise to a diagonal artery that has occluded SVG graft. * Circumflex has diffuse disease from mid to distal segment. No revascularization target. Proximal left circumflex artery has 40 to 50% stenosis.. * RV Marginal: Severe 90% stenosis, KAVIN: 3 flow. * VILLEGAS to LAD is patent. However after the touchdown there is diffuse significant disease of [place] LAD. * SVG to OM and SVG to diagonal arteries are occluded. * Proximal Right Coronary Artery: significant 80% stenosis, KAVIN: 3 flow. * Coronary angiography shows right dominance. PCI Status: Elective PCI Indication: Other Interventional Findings * Procedure detail: We engaged RCA with JR4 guide catheter. IV heparin was administered to maintain anticoagulation. 0.014 run-through guidewire was used to cross the stenosis. We predilated the stenosis with 2.5 x 20 mm semicompliant balloon. This was followed by placement of 2.75 x 30 mm resolute Jax drug-eluting stent. We then advanced the wire into RV marginal branch and dilated stenosis with 2.25 x 12 mm balloon. We did not place a stent in the marginal branch. At this time final angiogram showed excellent stent expansion and RCA, no residual stenosis and KAVIN III flow. Guidewire and guide catheter were removed. Patient left the Firefighter Type One in a stable condition.. * Acute Marginal: 90% stenosis treated with a AB TREK 2.25X12 RX BALLOON. 0% residual stenosis, KAVIN: 3 flow. * Proximal Right Coronary Artery: 80% stenosis treated with a AB TREK 2.50X20 RX BALLOON, and MDT R JAX 2.75X30 LOUIE. 0% residual stenosis, KAVIN: 3 flow. Conclusions 1. Severe proximal RCA stenosis status post successful revascularization with 1 stent. Severe RV marginal stenosis status post revascularization with balloon angioplasty.. 2. Patient has prior CABG. 3. Proximal Right Coronary Artery was treated with a Balloon, and Drug Eluting Stent. 4. Acute Marginal was treated with a Balloon. Recommendations * Dual antiplatelet therapy with aspirin and Plavix. * High intensity statin therapy. * Outpatient cardiology follow-up in 2 to 4 weeks. Interventional RX Recommendation: PCI w/o planned CABG Diagnostic RX Recommendation: PCI w/o planned CABG Anticoagulation: Heparin Pressures Phase:Rest AO : 114 / 100 ( 88 ) @ 9:54:00 AM 113 / 79 ( 96 ) @ 9:58:00 AM 132 / 82 ( 107 ) @ 10:07:00 AM 170 / 70 ( 111 ) @ 10:11:00 AM 171 / 70 ( 106 ) @ 10:11:00 AM 121 / 90 ( 106 ) @ 10:12:00 AM 165 / 69 ( 103 ) @ 10:16:00 AM 133 / 67 ( 97 ) @ 10:27:00 AM 134 / 66 ( 97 ) @ 10:38:00 AM LV : 162 / -16 / 19 @ 10:10:00 AM 160 / -14 / 20 @ 10:11:00 AM Valves Phase:DefaultPhase AV : 0.0 @ 9:51:09 AM AV Mean Gradient: 0.0 @ 9:51:09 AM 0.0 @ 9:51:09 AM Clinical Evaluation EBL: 5mL-10mL Procedural Details Pre-Procedure Time Out. Identified patient by full name and date of as verbalized by the patient/guarantor. Does the consent match the physician's order: Yes. Accurate & Complete Informed Consent: Yes. Inpatient/Outpatient History & Physical on Chart: Yes. If H&P is completed, is and addenduem needed: No; If yes, is the addendum complete: N/A. Visualize and Verify Site with Patient/Guarantor: N/A. Relevant Radiology Images available: Yes. Pre-op teaching completed and patient verbalized understanding. The risks, benefits, and alternatives of sedation and/or procedure were discussed by physician. The patient agrees to continue. Procedure started. [facility] Clinical Fraility Score: 3: Managing Well. Firefighter Type One Indications: Worsening Angina. Chest Pain Symptom Assessment: Typical Angina Symptoms. Correct patient, site and procedure confirmed by cath team. Current diagnosis: Chest Pain. PERRLA. Strong, equal hand library technical assistant bilaterally. Lungs clear x 5 lobes. IV Site on Arrival: 20 gauge in the left anticubital. IV Fluids: 0.9% NaCl at KVO. 0 mL infused prior to pathology laboratory aides teacher. Oxygen started at 2liters/min via nasal canula. Pre Procedural Pulses: bilateral posterior tibial was Doppled. Pre Procedural Pulses: bilateral dorsalis pedis was 2+. bilateral groins was prepped with chloroprep then draped in the usual sterile fashion. Baseline sample Acquired. HR: 102 BPM. Physician arrived. Current Diagnosis : Chest Pain. Physician scrubbed in. Immediate Pre-Procedure Time Out. Correct Patient: Yes; Correct Procedure: Yes; Correct Site: Yes; Correct Patient Position: Yes; Correct Supplies: Yes; Dried Flammable Prep: Yes; Blood Products Available: N/A;. Lidocaine 1% infiltrated to the right groin. Arterial access obtained with micropuncture set. A 5 [place] JL4 catheter in over wire. Multiple views taken of left coronary artery. Catheter removed over the standard wire. A 5 [place] JR4 catheter in over wire. Multiple views taken of right coronary artery. SVG to OM and Diag occluded. VILLEGAS to LAD visualized. Catheter removed over the exchange wire. A 5 botswanan IM catheter in over wire. VILLEGAS to LAD visualized. Catheter removed over the standard wire. A 5 [place]ots[place]an Angled Pig catheter in over wire. EDP Sample taken: LV 162/-17,19; HR: 99 BPM; SpO2: 100%. Pullback taken: LV 160/-15,20; AO 170/70(111); Mean: 0mmHg, Peak to Peak: 0mmHg, SEP: 10sec/min; HR: 88 BPM; SpO2: 100%. Aortogram performed in KHMER @ 10 mL/second for a total of 30 mL. Catheter removed over the standard wire. A 5 bots[place]an MPA1 catheter in over wire. Catheter removed over the standard wire. A 5 [place] AL1 catheter in over wire. Catheter removed over the standard wire. 6 bots[place]an JR 4 guide catheter was inserted over the wire. Runthrough guidewire was advanced through the guide catheter to lesion in the prox RCA. Inflation number : 1 A AB TREK 2.50X20 RX BALLOON was prepped and advanced across the Prox RCA , then inflated to 10 OSVALDO for 0:19 seconds. Inflation number: 2 The AB TREK 2.50X20 RX BALLOON was reinflated across the Prox RCA, to 10 OSVALDO for 0:09 seconds. Balloon out. Inflation Number : 3 A JANY Irvin JAX 2.75X30 LOUIE -Lot Number# _[id number] EXP: 10/06/2024 was prepped and advanced across the Prox RCA. The stent was deployed at 12 OSVALDO for 0:15 seconds. Stent balloon out over wire. Results checked. Wire redirected to the RV marginal branch. Inflation number : 1 A AB TREK 2.25X12 RX BALLOON was prepped and advanced across the 1st Ac Saniya , then inflated to 8 OSVALDO for 0:15 seconds. Balloon out. Wire out. Results checked. ACT drawn. Results 297 seconds. Therapeutic limits - pre-heparin administration 90-150 seconds and monitoring heparin during a vascular procedure >250 seconds. Guide catheter out. A Right femoral angiogram was performed to determine safe placement of closure device. Lidocaine 1% infiltrated to the right groin. A Angio-Seal VIP (St. Mohinder) was successful obtaining hemostatsis at the Right Femoral artery insertion site. Vital chart was stopped. Post Procedure: Pulses reassessed and unchanged. PERRLA. Strong, equal hand library technical assistant bilaterally. No VTE prophylaxis required. Medication's Wasted: Heparin = 4500 units. Medication's Wasted: Other = Fentanyl 25mcg Versed 1 mg. Total IV fluids: 85 mL. Post-op diagnosis: Stent to RCA. Complications: None. Estimated blood loss: 5mL-10mL. Responsiveness - Normal response to verbal stimuli; alert and oriented, PERRLA. Airway - Unaffected, no intervention required; spontaneous ventilation. Circulation: W/N/L, pulses unchanged. Nausea/Vomiting: No. Procedure completed. Patient transferred by bed to CPRU. Access Site Site: Right Femoral artery Sheath Size: 6 Fr Hemostasis Method: Angio-Seal VIP (St. Mohinder) Hemostasis Success: Successful Procedure Medications Start: 8:39 AM Stop: 8:39 AM Medication: Versed Amount: 1 mg Route: I.V. Start: 8:39 AM Stop: 8:39 AM Medication: Fentanyl Amount: 50 mcg Route: I.V. Start: 8:52 AM Stop: 8:52 AM Medication: Versed Amount: 1 mg Route: I.V. Start: 9:05 AM Stop: 9:05 AM Medication: Heparin Amount: 1500 units Route: I.V. Start: 9:08 AM Stop: 9:08 AM Medication: Heparin Amount: 5000 units Route: I.V. Start: 9:19 AM Stop: 9:19 AM Medication: Fentanyl Amount: 25 mcg Route: I.V. Start: 9:31 AM Stop: 9:31 AM Medication: Versed Amount: 1 mg Route: I.V. Start: 9:42 AM Stop: 9:42 AM Medication: Plavix Amount: 600 mg Route: P.O. I, the attending physician, have reviewed and verified all procedure medications. Yes, all medications given per verbal order History/Risk Factors Hypertension: Yes Dyslipidemia: Yes Peripheral Arterial Disease (PAD): No Myocardial Infarction (PR): No Obesity: No Renal Disease: No Tobacco Use: Never Prior Interventions PCI: No CABG: Yes Valve Surgery: No Report Signatures Finalized by Joshua Mari MD on 05/08/2024 02:15 PM
[2024-05-02 07:48] LABS: Basophils % 0.6 %; Eosinophils # 0.3 10^3/uL (0.0-0.8); Eosinophils % 4.7 %; Hematocrit 41.4 % (36-47); Lymphocytes # 1.7 10^3/uL (0.8-4.8); Lymphocytes % 26.3 %; Mean Corpuscular HGB Conc 33.1 g/dL (30-55); Mean Corpuscular Hemoglobin 31.4 pg (27-33); Mean Platelet Volume 11.3 fL (7.4-10.4); Monocytes # 0.7 10^3/uL (0.2-0.9); Monocytes % 10.8 %; Neutrophils # 3.77 10^3/uL (1.8-7.7); Neutrophils % 57.3 %; Nucleated Red Blood Cells % 0 %; Platelet Count 169 10^3/cmm (157-399); Red Blood Count 4.36 10^6/uL (3.85-5.65); Red Cell Distribution Width 13.1 % (12.1-15.1); White Blood Count 6.58 10^3/uL (3.29-11.43)
[2024-05-02] MEDS: aspirin 325 mg Tablet PO (07:49)
[2024-05-02] MEDS: diphenhydrAMINE 50 mg Capsule PO (07:50)
[2024-05-02 08:04] LABS: Anion Gap 13.5 (5-19); Blood Urea Nitrogen 18 mg/dL (8-23); Calcium 9.4 mg/dL (8.5-10.5); Carbon Dioxide 27 mmol/L (22-29); Chloride 108 mmol/L (98-107); Creatinine Clr Calc Pharmacy 58.9786; Glucose 104 mg/dL (65-115); Osmolality Calculated 302 mOsm/kg (285-295); Potassium 3.5 mmol/L (3.5-5.1); Sodium 145 mmol/L (136-145)
--- NOTE | 2024-05-02 08:46 | W.PM.OPSUD ---
Surgery/Procedure H&P Update DATE OF PROCEDURE: May 02, 2024 DATE H&P PERFORMED: 04/14/24 H&P UPDATE INFORMATION: I have reviewed H&P completed within last 30 days, I have examined patient prior to procedure and No changes to prior documentation PREOP DIAGNOSIS: CCS class 3 angina/abnormal stress test PRIMARY INDICATION FOR PROCEDURE: CCS class 3 angina/abnormal stress test PLANNED PROCEDURE: Operation Date: 05/02/24 08:30 Proposed Procedures p Cardiac Catheterization(Left) - Joshua Mari M.D Possible percutaneous coronary intervention PATIENT REASSESSED PRIOR TO SEDATION, WITH NO CHANGE NOTED: Yes PHYSICAL EXAM: alert, oriented x 3, clear to auscultation bilaterally and regular rate & rhythm AIRWAY EVAL/ANESTHESIA PLAN: normal airway, ASA III, Risks, benefits & alternatives of sedation and/or procedure discussed and Patient agrees to continue as planned ADDITIONAL INFORMATION: Moderate sedation
--- NOTE | 2024-05-02 10:56 | PC.NURSE ---
received from cardiac pie bakery laborer at 1040 via bed.report received.pt is alert and awake and oriented x 4.denies pain at present.sr on monitor.right femoral site with drsg dry and intact.(angiosealed closed in pie bakery laborer).no hematoma noted.right leg is warm to touch and with brisk capillary refill.palpable dp pulse noted.pt instructed in activity restrictions s/p femoral artery procedure..and oriented to room environment...instructed to notify staff for any bleeding,pain,sob,numbness...or for any concerns at all.pt verb understanding of instructions
--- NOTE | 2024-05-02 13:42 | PC.NURSE ---
upon checking pt's right groin,post cath recovery,pt noted to have hematoma.manual pressure applied x 20 min.bp stable.no tachycardia.dr starr notified.no new orders received.will continue to freq.monitor
[2024-05-02] MEDS: enoxaparin 40 mg/0.4 mL Syringe SUBCUT (20:11)
[2024-05-03 06:00] VITALS: PULSE 66; BMI 30.7
[2024-05-03 06:10] VITALS: BP 111/61; PULSE 76; RESP 17; TEMP 36.4; O2SAT 94
--- NOTE | 2024-05-03 07:21 | P.DS_ITS ---
Discharge Providers Date of Admission: May 02, 2024 Date of Discharge: May 03, 2024 Attending Provider at Admission: Joshua Mari MD Attending Provider at Discharge: Joshua Mari M.D Primary Care Provider: Kaylin Campbell MD Reason for Visit Reason for Visit: I25.118, R06.09, I20.89, Z95.1 Brief History: 74-year-old woman with past medical hist ory of coronary artery disease s/p CABG in 2019 who has been having chest discomfort episodes with left arm pain with exertion. Has noted significant worsening recently. Had a stress test that was abnormal. Plan for coronary angiogram with possible PCI. Hospital Course Hospital Course Coronary angiogram demonstrated patent VILLEGAS to LAD however [place] LAD has diffuse disease after touchdown, SVG grafts to OM and diagonal artery are occluded. She had significant stenosis of proximal to mid RCA that was not grafted. We performed PCI of proximal to mid RCA and balloon angioplasty of RV marginal branch. As outpatient will need echocardiogram. Patient will be discharged home on aspirin and Plavix. We will uptitrate dose of rosuvastatin. Physical Exam Narrative: GENERAL: Patient is alert, awake and oriented x3. [] NECK: No jugular vein distension. [] HEENT: No cyanosis. No icterus. No pallor. [] HEART: Regular S1 and S2. No murmur, rub or gallop. [] LUNGS: Clear to auscultate bilaterally. [] CENTRAL NERVOUS SYSTEM: Grossly nonfocal. [] EXTREMITIES: Lower extremities with 1+ edema bilaterally. Discharge Data Studies Completed and Pending Pending at discharge Category Date Time Status COUNTER ROLLER request for service Routine Exams 05/02/24 07:30 Taken Laboratory Results WBC 6.58 10^3/uL (3.29-11.43) 05/02/24 07:30 RBC 4.36 10^6/uL (3.85-5.65) 05/02/24 07:30 Hgb 13.70 g/dL (11.27-16.99) 05/02/24 07:30 Hct 41.4 % (36-47) 05/02/24 07:30 MCV 95.0 fl (85-98) 05/02/24 07:30 MCH 31.4 pg (27-33) 05/02/24 07:30 MCHC 33.1 g/dL (30-55) 05/02/24 07:30 RDW 13.1 % (12.1-15.1) 05/02/24 07:30 Plt Count 169 10^3/cmm (157-399) 05/02/24 07:30 MPV 11.3 fL (7.4-10.4) H 05/02/24 07:30 Neut % (Auto) 57.3 % 05/02/24 07:30 Lymph % (Auto) 26.3 % 05/02/24 07:30 Carbon % (Auto) 10.8 % 05/02/24 07:30 Eos % (Auto) 4.7 % 05/02/24 07:30 Baso % (Auto) 0.6 % 05/02/24 07:30 Neut # (Auto) 3.77 10^3/uL (1.8-7.7) 05/02/24 07:30 Lymph # (Auto) 1.7 10^3/uL (0.8-4.8) 05/02/24 07:30 Carbon # (Auto) 0.7 10^3/uL (0.2-0.9) 05/02/24 07:30 Eos # (Auto) 0.3 10^3/uL (0.0-0.8) 05/02/24 07:30 Baso # (Auto) 0.0 10^3/uL (0.0-0.1) 05/02/24 07:30 Nucleated RBC % (auto) 0 % 05/02/24 07:30 Nucleated RBCs # 0.0 /100WBC 05/02/24 07:30 Sodium 145 mmol/L (136-145) 05/02/24 07:30 Potassium 3.5 mmol/L (3.5-5.1) 05/02/24 07:30 Chloride 108 mmol/L (98-107) H 05/02/24 07:30 Carbon Dioxide 27 mmol/L (22-29) 05/02/24 07:30 Anion Gap 13.5 (5-19) 05/02/24 07:30 BUN 18 mg/dL (8-23) 05/02/24 07:30 Creatinine 0.8 mg/dL (0.5-0.9) 05/02/24 07:30 GFR Calculation Not Reportable 05/02/24 07:30 Glucose 104 mg/dL (65-115) 05/02/24 07:30 Calculated Osmolality 302 mOsm/kg (285-295) H 05/02/24 07:30 Calcium 9.4 mg/dL (8.5-10.5) 05/02/24 07:30 Vitals Last Vital Signs Temp 97.6 F 05/03/24 06:10 Pulse 76 05/03/24 06:10 Resp 17 05/03/24 06:10 BP 111/61 05/03/24 06:10 Pulse Ox 94 05/03/24 06:10 O2 Del Method Room Air 05/03/24 06:10 Discharge Plan Discharge Patient Disposition: Home Prescriptions: New clopidogrel 75 mg Tablet 75 mg PO DAILY Qty: 90 3RF aspirin 81 mg Tablet,Delayed Release (Dr/Ec) 81 mg PO DAILY Qty: 90 3RF Continued (DME) custom orthotics See Rx Instructions .ROUTE .MEDSUPPLY Qty: 1 0RF Rx Instructions: As directed hydrochlorothiazide 25 mg tablet 25 mg PO DAILY Qty: 90 1RF omeprazole 40 mg capsule,delayed release(DR/EC) 40 mg PO DAILY Qty: 90 1RF fexofenadine-pseudoephedrine [Gracia-D 12 Hour] 60-120 mg tablet extended release 12 hr 1 tab PO Q12H PRN (Reason: allergy symptoms) Qty: 30 0RF epinephrine 0.3 mg/0.3 mL auto-injector 0.3 mg IM Q4H PRN (Reason: anaphylaxis) Qty: 1 1RF primidone 50 mg tablet 50 mg PO .qhs Qty: 10 1RF losartan 50 mg tablet 50 mg PO DAILY Qty: 90 3RF calcium carbonate [Calcium 600] 600 mg calcium (1,500 mg) Tablet 600 mg PO BID docusate sodium [Colace] 100 mg Capsule 100 mg PO DAILY nitroglycerin [Nitrostat] 0.4 mg Tablet, Sublingual 0.4 mg sublingual Q5M PRN (Reason: Chest Pain) Qty: 30 0RF coenzyme Q10 200 mg Capsule 200 mg PO DAILY Changed rosuvastatin 20 mg tablet 40 mg PO DAILY Qty: 90 1RF Discontinued aspirin [Aspir-81] 81 mg Tablet,Delayed Release (Dr/Ec) 81 mg PO DAILY Discharge Orders: Discharge Order (Routine); Ordered 05/03/24 Ordered By: Joshua Mari Referrals: Zoë Gomez FNP [Nurse Practitioner] - 05/18/24 2:00 pm Kaylin Campbell MD [Primary Care Provider] - Diet: Cardiac Activity: Increase activity as tolerated Patient Instructions: Coronary Angioplasty (DC) Discharge Attestations Time Spent in Discharge Care*: less than 30 min Status at Discharge: Cognitive status at discharge: cognitively intact , Behavioral status at discharge: cooperative , Quality Metrics Clinical Quality Measures [ No reported AMI, CVA or VTE this stay] Coding Level of Care Code Acute Code for Chg Fwmiguel
[2024-05-03 08:26] VITALS: BP 111/61; PULSE 76; RESP 17; TEMP 36.4; O2SAT 94
[2024-05-03] MEDS: atorvastatin 40 mg Tablet 80 MG PO (09:12)
[2024-05-03] MEDS: clopidogrel 75 mg Tablet PO (09:12)
[2024-05-03 09:13] VITALS: BP 131/59
[2024-05-03] MEDS: losartan 50 mg Tablet PO (09:13)
[2024-05-03] MEDS: hydroCHLOROthiazide 25 mg Tablet PO (09:13)
[2024-05-03] MEDS: aspirin 81 mg EC Tablet PO (09:14)
--- NOTE | 2024-05-03 09:44 | PC.NURSE ---
right groin area is bruised,but soft to touch.discharge instructions given and explained.pt verb understanding of instructions.discharged via w/c to exit at this time.spouse to drive pt home
== END 2024-05-03 09:50 | disposition home or self-care (01) ==
LOC: CCL 07:23 → CSU 09:51
PROVIDERS: PCP Family Medicine; Visit Provider Internal Medicine
DX: I25.118 Atherosclerotic heart disease of native coronary artery with other forms of angina pectoris (principal); I20.89 Other forms of angina pectoris; Z95.1 Presence of aortocoronary bypass graft; Z79.82 Long term (current) use of aspirin; Z86.718 Personal history of other venous thrombosis and embolism; I13.0 Hypertensive heart and chronic kidney disease with heart failure and stage 1 through stage 4 chronic kidney disease, or unspecified chronic kidney disease; N18.2 Chronic kidney disease, stage 2 (mild); I50.32 Chronic diastolic (congestive) heart failure; E78.5 Hyperlipidemia, unspecified
CPT/HCPCS: 36415; 75605; 80048; 85025; 85347; 92920; 93459; 96372; 96374; 96375; 96376; 99152; 99153; C1725; C1760; C1769; C1874; C1887; C1894; C9600; G0269; J1644; J1650; J2250; J3010; J7030; Q0163; Q9967

== ENCOUNTER 2024-05-06 10:50 | Emergency (ER) | payer MEDICARE, OTHER, SELFPAY ==
[2024-05-06] VITALS (8 sets, daily range): BP systolic 105–158; BP diastolic 53–76; PULSE 58–93; RESP 15–20; TEMP 36.4; O2SAT 95–99
--- NOTE | 2024-05-06 11:07 | ECG_ITS ---
[facility] Test Date: 2024-05-06 Pat Name: Mery Green Department: Room: Gender: Female Imaging Scheduler: : 1950 Requested By: Brennen Pandya Order Number: [id number] Ashanti MD: Eddie Cornell M.D. Measurements Intervals [place] Rate: 70 P: 67 GA: 208 QRS: 58 QRSD: 93 T: 126 QT: 369 QTc: 400 Interpretive Statements SINUS RHYTHM POSSIBLE LEFT ATRIAL ENLARGEMENT [-0.1mV P-WAVE IN V1/V2] MODERATE ST DEPRESSION [0.05+ mV ST DEPRESSION] ABNORMAL QRS-T ANGLE [QRS-T AXIS DIFFERENCE > 60] INTERPRETATION BASED ON A DEFAULT AGE OF 40 YEARS Compared to ECG 11/22/2019 21:35:34 Sinus bradycardia no longer present First degree AV block no longer present ST (T wave) deviation still present Electronically Signed On 05-07-2024 7:57:03 CDT by Eddie Cornell M.D. [id number]
--- NOTE | 2024-05-06 11:07 | XRR_ITS ---
PROCEDURE INFORMATION: Exam: XR Chest Exam date and time: 05/06/2024 11:27 AM Age: 74 years old Clinical indication: Shortness of breath; Prior surgery; Surgery date: 3-7 days post-operative; Surgery type: Cardiac stent x 5 days ago; Cabg 2018; Patient HX: Increased SOB; Cardiac stent placement x 1 week ago; HX pe TECHNIQUE: Imaging protocol: Radiologic exam of the chest. Views: 1 view. COMPARISON: 1. CR XR chest 1V portable [id number] 11/22/2019 5:[address] angio chest PE protcl [id number] 12/31/2018 2:36 PM FINDINGS: Lungs: Mild right basilar scarring. No consolidation. Pleural spaces: No substantial pleural effusion or pneumothorax. Heart/Mediastinum: No cardiomegaly. Mediastinal surgical clips. Hiatal hernia. Vasculature: Aortic arch atherosclerotic calcification. Bones/joints: Mild dextroconvex spinal curvature. Degenerative changes along the spine. Prior median sternotomy. XR/XR chest 1V portable [id number] IMPRESSION: No acute findings.
--- NOTE | 2024-05-06 11:17 | ED_ITS ---
HPI - SOB/Dyspnea 2 General: Chief Complaint: Shortness of Breath/Dyspnea Stated Complaint: SOB Time Seen by Provider: 05/06/24 11:05 History of Present Illness: HPI Narrative: 74-year-old female presents emergency ro om complaining of shortness of breath. Earlier this week she had an angiogram done with angioplasty. She has been walking and today feels like she cannot catch her breath. She is not having any chest pain no fever sweats or chills. She does have a history of DVT PE. No oral anticoagulation Associated symptoms: Deny abdominal pain, chest congestion, chest pain or fever(s) Review of Systems 2 Const: Denies: fever(s) or chills Card: Denies: chest pain Resp: Reports: dyspnea; Denies: productive cough, non-productive cough, wheezing or chest congestion GI: Denies: abdominal pain : Denies: dysuria, urinary frequency or urinary urgency Musc: Denies: neck pain or back pain Skin/Breast: Denies: rash PFSH ED 2 PFSH: Medical History Enrolled in chronic care management No pertinent past medical history Denies diabetes, asthma, seizures. PMD: Dr. Campbell Cervical lesion ---> Received records from Dr. Mar at [facility]- continue his notes from 10/31/2015, 10/29/2014, 10/26/2013 received and reviewed and all show that patient had a 3 cm mass in her anterior cervix that has been stable in size and that this has been documented as a nabothian cyst. She has no abnormal Pap smears in the past and Pap smear records were updated. Hypertension Chronic GERD DVT (deep venous thrombosis) See story under PE. CKD (chronic kidney disease), stage II Hyperlipidemia -continue statin Chronic diastolic CHF (congestive heart failure) Pulmonary emboli -had PE shortly after CABG in 12/2018 -Was on Eliquis for 1 year and this was stopped in 2019. Coronary artery disease Surgical History S/P cholecystectomy Laparoscopic procedure performed in the 1998 History of heart bypass surgery 12/11/2018. Surgery was complicated by postoperative DVT and pulmonary embolism and she was on blood thinners and Plavix. Family History Father CAD (coronary artery disease) Hypertension Hyperlipidemia Mother CAD (coronary artery disease) Congestive heart failure (CHF) Diabetes Hypertension Grandfather No problems noted. Grandmother Stroke maternal and paternal Denies family history of Colon cancer Ovarian cancer Breast cancer Uterine cancer Thyroid disease Social History Smoking and tobacco/nicotine status: never used tobacco/nicotine Second hand smoke exposure: No Alcohol intake: never Substance/Drug Use: never Lives independently: Yes Household members: spouse Marital status: Current occupational status: retired Current gender identity: Female Special oyly needs: No Physical Exam 2 Const: GENERAL APPEARANCE: cooperative and comfortable O RIENTATION/CONSCIOUSNESS: Yes awake, Yes oriented to person, Yes oriented to place and Yes oriented to time HENMT: COMMON NORMALS: normocephalic, atraumatic and hearing grossly normal bilaterally HEAD & SCALP: normocephalic and atraumatic Resp: COMMON NORMALS: normal respiratory effort, No retractions, No use of accessory muscles and clear to auscultation bilaterally AUSCULTATION: clear to auscultation bilaterally Cardio: COMMON NORMALS: regular rate, regular rhythm and No murmurs present (Cardio) RATE: regular rate RHYTHM: regular rhythm GI: COMMON NORMALS: Soft to palpation and No hepatosplenomegaly present A USCULTATION: Yes normoactive bowel sounds PALPATION: Yes Soft to palpation, No Tenderness to palpation present (GI), No Guarding due to palpation present (GI) and Yes No hepatosplenomegaly present Extremity: COMMON NORMALS: normal to inspection, capillary refill normal, no clubbing, cyanosis or edema, no calf tenderness and no pedal edema Neuro: SENSORIUM/ORIENTATION: Yes oriented to person, Yes oriented to place and Yes oriented to time Skin: COMMON NORMALS: no rashes or lesions noted GENERAL SKIN EXAM: no rashes or lesions noted Course 2 Vital Signs: Vital signs: Vital Signs Temperature 97.6 F 05/06/24 10:58 Pulse Rate 90 05/06/24 15:19 Respiratory Rate 15 05/06/24 15:19 Blood Pressure 137/60 05/06/24 15:19 Pulse Oximetry 97 05/06/24 15:19 Oxygen Delivery Me thod Room Air 05/06/24 14:26 MDM - SOB/Dyspnea Medical Decision Making Cardiac enzymes negative EKG does not show any acute changes. Discharge summary from previous hospitalization reviewed with the including description of angiogram. Patient not having any chest pain at this time sats have been good CTA was negative. It did show on the CT some signs of bronchitis. Lab Data 05/06/24 11:15 05/06/24 11:15 Labs/Radiology: Radiology Impressions Chest X-Ray 05/06/24 11:07 IMPRESSION: No acute findings. Chest CTA 05/06/24 13:48 IMPRESSION: 1. No acute pulmonary emboli. 2. Small area of tree-in-bud nodularity at the lateral right lung compatible with infectious or inflammatory bronchiolitis. 3. Additional chronic and incidental findings as above, to include moderate hiatal hernia and heavy atherosclerosis with coronary artery calcification status post CABG and stable proximal abdominal visceral artery stenoses. Laboratory Results WBC 5.38 10^3/uL (3.29-11.43) 05/06/24 11:15 RBC 4.05 10^6/uL (3.85-5.65) 05/06/24 11:15 Hgb 12.80 g/dL (11.27-16.99) 05/06/24 11:15 Hct 38.9 % (36-47) 05/06/24 11:15 MCV 96.0 fl (85-98) 05/06/24 11:15 MCH 31.6 pg (27-33) 05/06/24 11:15 MCHC 32.9 g/dL (30-55) 05/06/24 11:15 RDW 12.9 % (12.1-15.1) 05/06/24 11:15 Plt Count 180 10^3/cmm (157-399) 05/06/24 11:15 MPV 11.5 fL (7.4-10.4) H 05/06/24 11:15 Neut % (Auto) 64.4 % 05/06/24 11:15 Lymph % (Auto) 21.6 % 05/06/24 11:15 Canadian % (Auto) 8.9 % 05/06/24 11:15 Eos % (Auto) 4.5 % 05/06/24 11:15 Baso % (Auto) 0.4 % 05/06/24 11:15 Neut # (Auto) 3.47 10^3/uL (1.8-7.7) 05/06/24 11:15 Lymph # (Auto) 1.2 10^3/uL (0.8-4.8) 05/06/24 11:15 Canadian # (Auto) 0.5 10^3/uL (0.2-0.9) 05/06/24 11:15 Eos # (Auto) 0.2 10^3/uL (0.0-0.8) 05/06/24 11:15 Baso # (Auto) 0.0 10^3/uL (0.0-0.1) 05/06/24 11:15 Nucleated RBC % (auto) 0 % 05/06/24 11:15 Nucleated RBCs # 0.0 /100WBC 05/06/24 11:15 Sodium 143 mmol/L (136-145) 05/06/24 11:15 Potassium 4.1 mmol/L (3.5-5.1) 05/06/24 11:15 Chloride 106 mmol/L (98-107) 05/06/24 11:15 Carbon Dioxide 26 mmol/L (22-29) 05/06/24 11:15 Anion Gap 15.1 (5-19) 05/06/24 11:15 BUN 18 mg/dL (8-23) 05/06/24 11:15 Creatinine 0.9 mg/dL (0.5-0.9) 05/06/24 11:15 GFR Calculation Not Reportable 05/06/24 11:15 Glucose 97 mg/dL (65-115) 05/06/24 11:15 Calculated Osmolality 298 mOsm/kg (285-295) H 05/06/24 11:15 Calcium 9.9 mg/dL (8.5-10.5) 05/06/24 11:15 Total Bilirubin 0.3 mg/dL (0.15-1.2) 05/06/24 11:15 AST 18 U/L (0-32) 05/06/24 11:15 ALT 17 U/L (0-33) 05/06/24 11:15 Alkaline Phosphatase 67 U/L (35-105) 05/06/24 11:15 Troponin T Baseline 14 ng/L (0-10) H 05/06/24 11:15 Troponin T 120 Minute 13.17 ng/L (0-10) H 05/06/24 13:08 Delta Troponin T -0.83 ABS# (0-10) L 05/06/24 13:08 Total Protein 6.8 g/dL (6.6-8.7) 05/06/24 11:15 Albumin 3.9 g/dL (3.5-5.2) 05/06/24 11:15 Globulin 2.9 g/dL (1.3-4.6) 05/06/24 11:15 All radiology interpretation(s) finalized by discharge Discharge Plan Discharge Patient Disposition: Home Clinical Impression: Bronchitis Condition: Stable Prescriptions: New doxycycline hyclate 100 mg capsule 100 mg PO BID 10 Days Qty: 20 0RF No Action (DME) custom orthotics See Rx Instructions .ROUTE .MEDSUPPLY Qty: 1 0RF Rx Instructions: As directed hydrochlorothiazide 25 mg tablet 25 mg PO DAILY Qty: 90 1RF omeprazole 40 mg capsule,delayed release(DR/EC) 40 mg PO DAILY Qty: 90 1RF fexofenadine-pseudoephedrine [Gracia-D 12 Hour] 60-120 mg tablet extended release 12 hr 1 tab PO Q12H PRN (Reason: allergy symptoms) Qty: 30 0RF epinephrine 0.3 mg/0.3 mL auto-injector 0.3 mg IM Q4H PRN (Reason: anaphylaxis) Qty: 1 1RF primidone 50 mg tablet 50 mg PO .qhs Qty: 10 1RF losartan 50 mg tablet 50 mg PO DAILY Qty: 90 3RF calcium carbonate [Calcium 600] 600 mg calcium (1,500 mg) Tablet 600 mg PO BID docusate sodium [Colace] 100 mg Capsule 100 mg PO DAILY nitroglycerin [Nitrostat] 0.4 mg Tablet, Sublingual 0.4 mg sublingual Q5M PRN (Reason: Chest Pain) Qty: 30 0RF coenzyme Q10 200 mg Capsule 200 mg PO DAILY clopidogrel 75 mg Tablet 75 mg PO DAILY Qty: 90 3RF aspirin 81 mg Tablet,Delayed Release (Dr/Ec) 81 mg PO DAILY Qty: 90 3RF rosuvastatin 20 mg tablet 40 mg PO DAILY Qty: 90 1RF Discharge Orders: Discharge ED (Routine); Ordered 05/06/24 Ordered By: Brennen Cherry Referrals: Kaylin Campbell MD [Primary Care Provider] - Discharge Diet: Usual diet Discharge Activity: Increase activity as tolerated Patient Instructions: Opioid Safety, Pain Management Activity Restrictions/Additional Instructions: Thank you for choosing [facility] for your healthcare needs today. It is very important that you follow up as instructed or that you return to the Emergency Department should you have concerns or if your condition changes or worsens in any way. You were seen today with complaint of shortness of breath. Your cardiac enzymes and EKGs did not show acute changes. CTA of the chest showed evidence of bronchitis but no PE. Recommend you take the doxycycline 1 pill twice a day for 10 days follow-up with your primary care doctor. 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
[2024-05-06 11:21] LABS: Basophils % 0.4 %; Eosinophils # 0.2 10^3/uL (0.0-0.8); Eosinophils % 4.5 %; Hematocrit 38.9 % (36-47); Lymphocytes # 1.2 10^3/uL (0.8-4.8); Lymphocytes % 21.6 %; Mean Corpuscular HGB Conc 32.9 g/dL (30-55); Mean Corpuscular Hemoglobin 31.6 pg (27-33); Mean Platelet Volume 11.5 fL (7.4-10.4); Monocytes # 0.5 10^3/uL (0.2-0.9); Monocytes % 8.9 %; Neutrophils # 3.47 10^3/uL (1.8-7.7); Neutrophils % 64.4 %; Nucleated Red Blood Cells % 0 %; Platelet Count 180 10^3/cmm (157-399); Red Blood Count 4.05 10^6/uL (3.85-5.65); Red Cell Distribution Width 12.9 % (12.1-15.1); White Blood Count 5.38 10^3/uL (3.29-11.43)
[2024-05-06 11:44] LABS: Alanine Aminotransferase 17 U/L (0-33); Albumin Level 3.9 g/dL (3.5-5.2); Alkaline Phosphatase 67 U/L (35-105); Anion Gap 15.1 (5-19); Aspartate Amino Transferase 18 U/L (0-32); Blood Urea Nitrogen 18 mg/dL (8-23); Calcium 9.9 mg/dL (8.5-10.5); Carbon Dioxide 26 mmol/L (22-29); Chloride 106 mmol/L (98-107); Creatinine Clr Calc Pharmacy 52.7348; Globulin 2.9 g/dL (1.3-4.6); Glucose 97 mg/dL (65-115); Osmolality Calculated 298 mOsm/kg (285-295); Potassium 4.1 mmol/L (3.5-5.1); Sodium 143 mmol/L (136-145); Total Bilirubin 0.3 mg/dL (0.15-1.2); Total Protein 6.8 g/dL (6.6-8.7)
[2024-05-06 11:45] LABS: Troponin(5th) Baseline 14 ng/L (0-10)
--- NOTE | 2024-05-06 13:12 | ECG_ITS ---
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 Measurements Intervals [place] Rate: 60 P: 135 NH: 215 QRS: 54 QRSD: 96 T: 155 QT: 391 QTc: 391 Interpretive Statements ECTOPIC ATRIAL RHYTHM WITH FIRST DEGREE AV BLOCK POSSIBLE LEFT ATRIAL ENLARGEMENT [-0.1mV P-WAVE IN V1/V2] INDETERMINATE AXIS LOW QRS VOLTAGE IN EXTREMITY LEADS [QRS DEFLECTION < 0.5 mV IN LIMB LEADS] MODERATE ST DEPRESSION [0.05+ mV ST DEPRESSION] ABNORMAL QRS-T ANGLE [QRS-T AXIS DIFFERENCE > 60] Compared to ECG 05/06/2024 10:57:39 Ectopic atrial rhythm now present First degree AV block now present Indeterminate axis now present Low QRS voltage now present ST (T wave) deviation still present Electronically Signed On 05-07-2024 7:59:42 CDT by Eddie Cornell M.D. [id number]
[2024-05-06 13:30] LABS: Troponin 5 2HR 13.17 ng/L (0-10)
[2024-05-06 13:33] LABS: Troponin 5 2HR Delta -0.83 ABS# (0-10)
--- NOTE | 2024-05-06 13:48 | CTR_ITS ---
PROCEDURE INFORMATION: Exam: CTA Chest With Contrast Exam date and time: 05/06/2024 2:11 PM Age: 74 years old Clinical indication: Dyspnea; Prior surgery; Surgery date: 6+ months; Surgery type: Heart TECHNIQUE: Imaging protocol: Computed tomographic angiography of the chest with contrast. Exam focused on the arteries. 3D rendering (Not supervised by radiologist): MIP and/or 3D reconstructed images were created by the technologist. Radiation optimization: All CT scans at this facility use at least one of these dose optimization techniques: automated exposure control; mA and/or kV adjustment per patient size (includes targeted exams where dose is matched to clinical indication); or iterative reconstruction. Contrast material: OMNI 350; Contrast volume: 70 ml; Contrast route: INTRAVENOUS (IV); COMPARISON: 1. CT angio chest PE protcl [id number] 12/31/2018 2:36 PM 2. CR (CHEST, ) 05/06/2024 11:27 AM RADIATION DOSE METRICS: Total DLP (mGy-cm): 717.78 FINDINGS: Pulmonary arteries: Normal. No pulmonary emboli. Aorta: Heavy systemic atherosclerosis without aortic aneurysm. Stable focal stenosis at the celiac axis origin, proximal SMA, and bilateral renal arteries. Lungs: Minimal dependent atelectasis. Right lower lobe and lingula bandlike atelectasis versus scarring. No consolidation. No masses. Small area of tree-in-bud nodularity at the lateral right upper and lower lobes. Few scattered calcified granulomata. Pleural spaces: Unremarkable. No pneumothorax. No pleural effusion. Heart: Unremarkable. No cardiomegaly. No pericardial effusion. Coronary arteries: Heavy coronary artery calcification. Status post CABG. Lymph nodes: No suspicious lymphadenopathy. Calcified mediastinal and hilar lymph nodes in keeping with sequela of old granulomatous disease. Diaphragm: Moderate hiatal hernia. Gallbladder and biliary ducts: Stable post cholecystectomy changes. Bones/joints: No acute fracture. Degenerative change along the spine. Prior median sternotomy. Soft tissues: Unremarkable. CT/CT angio chest PE protcl [id number] IMPRESSION: 1. No acute pulmonary emboli. 2. Small area of tree-in-bud nodularity at the lateral right lung compatible with infectious or inflammatory bronchiolitis. 3. Additional chronic and incidental findings as above, to include moderate hiatal hernia and heavy atherosclerosis with coronary artery calcification status post CABG and stable proximal abdominal visceral artery stenoses.
[2024-05-06] MEDS: iohexol 350 mg/mL 500 mL Btl (per mL) IV (14:14)
== END 2024-05-06 15:20 | disposition home or self-care (01) ==
PROVIDERS: Emergency Provider Family Medicine; PCP Family Medicine
DX: J40 Bronchitis, not specified as acute or chronic (principal); Z79.02 Long term (current) use of antithrombotics/antiplatelets; Z79.82 Long term (current) use of aspirin; I13.0 Hypertensive heart and chronic kidney disease with heart failure and stage 1 through stage 4 chronic kidney disease, or unspecified chronic kidney disease; N18.2 Chronic kidney disease, stage 2 (mild); I50.32 Chronic diastolic (congestive) heart failure; E78.5 Hyperlipidemia, unspecified; I25.10 Atherosclerotic heart disease of native coronary artery without angina pectoris
CPT/HCPCS: 71045; 71275; 80053; 84484; 85025; 93005; 99285; Q9967

== ENCOUNTER → 2024-05-18 13:30 | Outpatient (BNVA) | payer MEDICARE, OTHER, SELFPAY | PROVIDERS: PCP Family Medicine; Visit Provider Nurse Practitioner Family | DX: I25.10 Atherosclerotic heart disease of native coronary artery without angina pectoris (principal); I13.0 Hypertensive heart and chronic kidney disease with heart failure and stage 1 through stage 4 chronic kidney disease, or unspecified chronic kidney disease; N18.2 Chronic kidney disease, stage 2 (mild); I50.32 Chronic diastolic (congestive) heart failure | CPT/HCPCS: 99213 ==

== ENCOUNTER 2024-05-25 06:12 | Outpatient (CLI) | payer MEDICARE, OTHER, SELFPAY ==
--- NOTE | 2024-05-25 06:30 | USCV_ITS ---
Mery Green Age: 74 Gender: F : 1950 Exam Date: 05/25/2024 06:21 Ordering Phys: Joshua Mari M.D ([email or web address]) Technologist: KEVEN [place] [facility] [place]ication: POST CABG AND STENT AND PICA BP: / HR: 62 Rhythm: Sinus Technical Quality: Adequate MEASUREMENTS (Male / Female) Normal Values 2D ECHO LV Diastolic Diameter PLAX 4.1 cm 4.2 - 5.9 / 3.9 - 5.3 cm LV Systolic Diameter PLAX 3.6 cm IVS Diastolic Thickness 0.8 cm 0.6 - 1.0 / 0.6 - 0.9 cm IVS Systolic Thickness 1.1 cm LVPW Diastolic Thickness 1.0 cm 0.6 - 1.0 / 0.6 - 0.9 cm LVPW Systolic Thickness 1.4 cm LVOT Diameter 2.2 cm LV Ejection Fraction 2D Teich 28.6 % LV Ejection Fraction MOD 4C 63.8 % LV Ejection Fraction MOD 2C 58.9 % LV Ejection Fraction 2C AL 58.2 % LA Diameter 2.8 cm RA Systolic Volume 4C AL 28.4 ml RA Systolic Volume 4C MOD 26.6 ml LA Sys Volume AL 33.8 cm cubed LA Sys Volume Index AL 18.5 cm cubed/m squared Aorta at Sinotubular Diameter 2.7 cm IVC Diameter 1.4 cm M-MODE LA Ao Ratio MM 1.3 AV Cusp Separation MM 1.9 cm DOPPLER AV Peak Velocity 133.0 cm/s LVOT Peak Velocity 96.0 cm/s AV Area Cont Eq vti 3.1 cm squared AV Area Cont Eq pk 2.7 cm squared MV Area PHT 3.0 cm squared Mitral E to A Ratio 1.2 TV Peak Velocity 234.5 cm/s TR Peak Velocity 227.0 cm/s TR Peak Gradient 20.6 mmHg TR Mean Velocity 175.0 cm/s TR Mean Gradient 13.8 mmHg TR Velocity Time Integral 88.8 cm TV Peak E Velocity 66.0 cm/s Right Atrial Pressure 3.0 mmHg Pulmonary Artery Systolic Pressu 23.6 mmHg PV Peak Velocity 82.0 cm/s FINDINGS Left Ventricle Left ventricle is normal in size. LV systolic function is normal with EF of 55 to 60%. No regional wall motion abnormalities are seen. Grade 1 diastolic dysfunction Right Ventricle Normal in size and function Right Atrium Normal in size Left Atrium Normal in size Mitral Valve Structurally normal mitral valve. Mild mitral regurgitation. Aortic Valve Aortic valve is thickened. Mild aortic regurgitation. No significant stenosis. Tricuspid Valve Mild tricuspid regurgitation. Pulmonary artery systolic pressure is normal. Pulmonic Valve Trace pulmonic regurgitation. Pericardium Normal Aorta Normal in size IVC Appears to be normal CONCLUSIONS LV systolic function is normal with EF of 55-60% Grade 1 diastolic dysfunction Mild mitral regurgitation Mild aortic regurgitation Mild tricuspid regurgitation Trace pulmonic regurgitation. Compared to prior echocardiogram from 2021, no significant changes are seen. Joshua Mari MD (Electronically Signed) Final Date: 27 May 2024 14:02 S
== END 2024-05-25 06:13 | disposition home or self-care (01) ==
LOC: RAD 06:12
PROVIDERS: PCP Family Medicine; Visit Provider Internal Medicine
DX: I25.118 Atherosclerotic heart disease of native coronary artery with other forms of angina pectoris (principal); I08.3 Combined rheumatic disorders of mitral, aortic and tricuspid valves; Z95.1 Presence of aortocoronary bypass graft
CPT/HCPCS: 93306

== ENCOUNTER → 2024-08-17 11:57 | Outpatient (BNVA) | payer MEDICARE, OTHER, SELFPAY | PROVIDERS: PCP Family Medicine; Visit Provider Family Medicine | DX: R41.3 Other amnesia (principal); I10 Essential (primary) hypertension; G62.9 Polyneuropathy, unspecified; Z79.899 Other long term (current) drug therapy | CPT/HCPCS: 80053; 80061; 82607; 82746; 84443; 85025; 86592 ==

== ENCOUNTER → 2024-09-04 09:59 | Outpatient (BNVA) | payer MEDICARE, OTHER, SELFPAY | PROVIDERS: PCP Family Medicine; Visit Provider Internal Medicine | DX: I13.0 Hypertensive heart and chronic kidney disease with heart failure and stage 1 through stage 4 chronic kidney disease, or unspecified chronic kidney disease (principal); I50.32 Chronic diastolic (congestive) heart failure; N18.2 Chronic kidney disease, stage 2 (mild); E78.5 Hyperlipidemia, unspecified; I25.118 Atherosclerotic heart disease of native coronary artery with other forms of angina pectoris; R00.1 Bradycardia, unspecified | CPT/HCPCS: 99214 ==

== ENCOUNTER 2024-09-11 08:59 | Outpatient (CLI) | payer MEDICARE, OTHER, SELFPAY | END 2024-09-11 09:00 | disposition home or self-care (01) | LOC: RT 09:00 | PROVIDERS: PCP Family Medicine; Visit Provider Internal Medicine | DX: R06.02 Shortness of breath (principal) | CPT/HCPCS: 94010; 94726; 94729 ==

== ENCOUNTER 2024-09-29 13:45 | Outpatient (CLI) | payer MEDICARE, OTHER, SELFPAY ==
--- NOTE | 2024-09-29 14:00 | MR_ITS ---
WS: [id number] MRI HEAD WITHOUT CONTRAST TECHNIQUE: Sagittal T1, T2 axial, T2 axial FLAIR, axial and coronal T1 images, axial susceptibility w eighted imaging, axial diffusion weighted images, and coronal T2 images were obtained. CLINICAL INFORMATION: cognitive decline COMPARISON: None. FINDINGS: No evidence of restricted diffusion to suggest acute ischemia. Ventricular system and basal cisterns are patent. Normal posterior fossa. Normal vascular flow voids at the skull base. No extra-axial flui d collections. No evidence of mass or mass effect. Mild mucosal thickening in the paranasal sinuses. Mastoid air cells are well aerated. Normal posterio r nasopharynx. No hemosiderin on the susceptibly weighted images. Normal optic chiasm and pituitary infundibulum. Te mporal lobes and hippocampal formations are normal in appearance. MR/MR head wo con* [id number] IMPRESSION: 1. No evidence of restricted diffusion to suggest acute ischemia. 2. Mild small vessel changes. Moderate parenchymal volume loss. Mild small ves loy changes in the rama. 3. No hemosiderin on the susceptibly weighted images. 4. Temporal lobes and hippocampal formations are normal in appearance. 5. No other suspicious findings.
== END 2024-09-29 13:46 | disposition home or self-care (01) ==
LOC: RAD 13:46
PROVIDERS: PCP Family Medicine; Visit Provider Family Medicine
DX: G31.9 Degenerative disease of nervous system, unspecified (principal); R41.3 Other amnesia
CPT/HCPCS: 70551

== ENCOUNTER → 2024-11-06 14:24 | Outpatient (BNVA) | payer MEDICARE, OTHER, SELFPAY | PROVIDERS: PCP Family Medicine; Visit Provider Nurse Practitioner Family | DX: R50.9 Fever, unspecified (principal) | CPT/HCPCS: 87400 ==

== ENCOUNTER 2024-11-20 07:56 | Outpatient (CLI) | payer MEDICARE, OTHER, SELFPAY ==
--- NOTE | 2024-11-20 | ECG_ITS ---
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 The perfusion scan will be documented separately. DATA: Baseline heart rate was 66 beats per minute. Baseline blood pressure was 142/77 millimeters of mercury. Target heart rate was 145. Maximum heart rate achieved was 92. which was 63% of the predicted target heart rate. Maximum blood pressure was 146/71 millimeters of mercury. The reason for ending the test was completion of the protocol. The patient did not experience any symptoms. ELECTROCARDIOGRAM: BASELINE: Sinus rhythm. Normal axis. Otherwise, no ST-T changes suggestive of ischemia noted. No arrhythmia noted. EXERCISE: After Lexiscan injection, mild inferolateral ST-T depression s noted. No arrhythmia noted. CONCLUSION: Please note due to baseline abnormality of the EKG specificity and sensitivity of the EKG portion of LexiScan MIBI stress test will be low 1. EKG is equivocal ischemia 2. Lexiscan injection unremarkable. 3. Perfusion scan will be documented separately. Electronically Signed On 12-17-2024 18:35:41 CDT by LAVON BLEDSOE [id number]
[2024-11-20 08:16] VITALS: BMI 26.9
--- NOTE | 2024-11-20 08:20 | NMCV_ITS ---
NM christine perf SPECT r/s* [id number] Mery Green Age: 74 Gender: F : 1950 Exam Date: 11/20/2024 09:00 Ordering Phys: Joshua Mari M.D ([email or web address]) Technologist: JOSH Strauss Exam Location: [facility] Indications: cp STRESS TEST [facility] IMAGE PROTOCOL Rest/Stress 1 Lexiscan Day Radiopharmaceutical Dose (mCi) Administration Site Administered by Rest: Tc-99m 10.8 IV ADILIA StraussMT Sestamibi Stress:Tc-99m 32 IV Starla Dewey, DIGITAL PROOFING AND PLATEMAKER Sestamibi Rest: 20-Nov-2024 60 Discovery 630 Stress: 20-Nov-2024 30 Discovery 630 0.4mg Lexiscan. Images obtained in supine and prone position. SPECT RESULTS Technical Quality: Good Raw Data Analysis: Normal Image Corrections: No attenuation or motion correction applied Summed Stress Score: 12 Summed Rest Score: 8 Summed Difference Score: 4 PERFUSION FINDINGS Medium sized area of fixed perfusion defect with moderate small to medium sized area of reversibility noted in the apical and distal lateral region suggestive of old myocardial infarction surrounded by medium sized area of moderate kiana- infarct ischemia. FUNCTIONAL RESULTS (calculated via Gated SPECT) Stress Image LV EF (%): 80 Stress EDV (mL):56 TID: 0.94 Stress ESV (mL):11 FUNCTIONAL FINDINGS: There appeared to be distal anterior apical and distal lateral wall hypokinesis. IMPRESSIONS Medium sized area of old myocardial infarction with medium sized area of moderate kiana-infarct ischemia noted in the apical and distal lateral wall suggestive of ischemia in the distal LAD and circumflex territory Suzie Wheeler MD (Electronically Signed) Final Date: 22 November 2024 16:49 S
[2024-11-20] MEDS: regadenoson 0.4 Mg/5 ml Syringe IVP (09:28)
[2024-11-20 09:42] VITALS: BP 144/62; PULSE 83
== END 2024-11-20 07:57 | disposition home or self-care (01) ==
LOC: CDL 07:57
PROVIDERS: PCP Family Medicine; Visit Provider Internal Medicine
DX: R07.9 Chest pain, unspecified (principal); I25.2 Old myocardial infarction; R93.1 Abnormal findings on diagnostic imaging of heart and coronary circulation; R94.31 Abnormal electrocardiogram [ECG] [EKG]
CPT/HCPCS: 36415; 78452; 93017; 96374; A9500; J2785

== ENCOUNTER → 2024-11-24 10:52 | Outpatient (BNVA) | payer MEDICARE, OTHER, SELFPAY | PROVIDERS: PCP Family Medicine; Visit Provider Internal Medicine | DX: I13.0 Hypertensive heart and chronic kidney disease with heart failure and stage 1 through stage 4 chronic kidney disease, or unspecified chronic kidney disease (principal); I50.32 Chronic diastolic (congestive) heart failure; N18.2 Chronic kidney disease, stage 2 (mild); E78.5 Hyperlipidemia, unspecified; I25.118 Atherosclerotic heart disease of native coronary artery with other forms of angina pectoris; R00.1 Bradycardia, unspecified | CPT/HCPCS: 99214 ==

== ENCOUNTER 2025-01-15 12:34 | Outpatient (CLI) | payer MEDICARE, OTHER, SELFPAY ==
--- NOTE | 2025-01-15 12:40 | MM_ITS ---
WS: [id number] BILATERAL 3D TOMOSYNTHESIS DIGITAL SCREENING MAMMOGRAPHY WITH CAD CLINICAL INFORMATION: Z12.39 - Encounter for other screening for malignant neop... HISTORY: Screening mammogram. No current complaints. COMPARISON: 2022 TECHNIQUE: Bilateral CC and MLO views. FINDINGS: The breasts are composed of heterogeneous fibroglandular density tissue, which can limit the detection of small underlying mass lesions. No suspicious mass, asymmetry, calcifications, or architectural distortion. No evidence of malignancy. A few tiny punctate calcifications. MM/MM [facility] tomosynthesis [id number] IMPRESSION: DENSITY: The breasts are heterogeneously dense, which may obscure small masses. BI-RADS: 2 - Benign FOLLOW UP: 1 Year Follow-up Recommend return to annual screening mammography.
== END 2025-01-15 12:35 | disposition home or self-care (01) ==
PROVIDERS: PCP Family Medicine; Visit Provider Family Medicine
DX: Z12.31 Encounter for screening mammogram for malignant neoplasm of breast (principal); R92.333 Mammographic heterogeneous density, bilateral breasts
CPT/HCPCS: 77063; 77067

== ENCOUNTER → 2025-01-23 08:46 | Outpatient (BNVA) | payer MEDICARE, OTHER, SELFPAY | PROVIDERS: PCP Family Medicine; Referring Provider Family Medicine; Visit Provider Psychiatry & Neurology Neurology | DX: G25.0 Essential tremor (principal); G62.9 Polyneuropathy, unspecified; R41.3 Other amnesia; R53.83 Other fatigue; I10 Essential (primary) hypertension; E78.5 Hyperlipidemia, unspecified; I25.118 Atherosclerotic heart disease of native coronary artery with other forms of angina pectoris; I50.32 Chronic diastolic (congestive) heart failure; G25.2 Other specified forms of tremor; M79.672 Pain in left foot | CPT/HCPCS: 99203 ==

== ENCOUNTER → 2025-01-24 13:39 | Outpatient (BNVA) | payer MEDICARE, OTHER, SELFPAY | PROVIDERS: PCP Family Medicine; Visit Provider Psychiatry & Neurology Neurology | DX: M79.672 Pain in left foot (principal); G62.9 Polyneuropathy, unspecified | CPT/HCPCS: 95910 ==

== ENCOUNTER 2025-01-30 07:48 | Outpatient (CLI) | payer MEDICARE, OTHER, SELFPAY ==
--- NOTE | 2025-01-30 08:30 | MR_ITS ---
WS: [id number] MRA CAROTID WITHOUT AND WITH GADOLINIUM ENHANCEMENT TECHNIQUE: Axial 2-D TOF and gadolinium bolus images obtained with axial images and axial, sagittal, and coronal 2-D reformatted images. CLINICAL INFORMATION: R41.3 - Other amnesia COMPARISON: None. FINDINGS: RIGHT: RIGHT common carotid artery is patent. No significant RIGHT ICA stenosis. RIGHT ICA is patent to the skull base. LEFT: LEFT common carotid artery is patent. No significant LEFT ICA stenosis. LEFT ICA is patent to the skull base. RIGHT dominant vertebral artery. Smaller but patent LEFT vertebral artery. Proximal subclavian arteries are patent. MR/MR angio neck w con* [id number] IMPRESSION: 1. No significant cervical ICA stenosis. 2. Codominant and patent vertebral arteries bilaterally. RIGHT dominant verteb ral artery.
--- NOTE | 2025-01-30 09:15 | MR_ITS ---
WS: [id number] MRA HEAD TECHNIQUE: Axial 3-D TOF images obtained with axial images and axial, sagittal, and coronal 2-D reformatted images. CLINICAL INFORMATION: R41.3 - Other amnesia COMPARISON: None. 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 No evidence of proximal flow-limiting stenosis. RIGHT dominant distal vertebral artery. Basilar artery is patent. Somewhat diminutive basilar artery with anterior dominant circulation. Patent RIGHT posterior communicating artery. Both ICAs are patent at the skull base. Patent anterior communicating artery. Normal vascularity to the RYAN and MCA territories bilaterally. Small LEFT A1 segment. Moderate narrowing in the carotid siphon on this bilaterally with atheromatous disease. Moderate narrowing distal LEFT M1 segment. MR/MR angio head wo con [id number] IMPRESSION: 1. 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 2. No evidence of proximal flow-limiting stenosis. 3. Anterior dominant circulation
== END 2025-01-30 07:49 | disposition home or self-care (01) ==
PROVIDERS: PCP Family Medicine; Visit Provider Psychiatry & Neurology Neurology
DX: R41.3 Other amnesia (principal); R53.83 Other fatigue; I10 Essential (primary) hypertension; E78.5 Hyperlipidemia, unspecified; I25.118 Atherosclerotic heart disease of native coronary artery with other forms of angina pectoris; I50.32 Chronic diastolic (congestive) heart failure; I67.2 Cerebral atherosclerosis; R93.0 Abnormal findings on diagnostic imaging of skull and head, not elsewhere classified
CPT/HCPCS: 70544; 70548

== ENCOUNTER → 2025-02-05 08:36 | Outpatient (BNVA) | payer MEDICARE, OTHER, SELFPAY | PROVIDERS: PCP Family Medicine; Visit Provider Family Medicine | DX: I10 Essential (primary) hypertension (principal); E78.5 Hyperlipidemia, unspecified | CPT/HCPCS: 80053; 80061 ==

== ENCOUNTER → 2025-02-21 15:37 | Outpatient (BNVA) | payer MEDICARE, OTHER, SELFPAY | PROVIDERS: PCP Family Medicine; Visit Provider Student in an Organized Health Care Education/Training Program | DX: M70.62 Trochanteric bursitis, left hip (principal) | CPT/HCPCS: 20610; 73502; 99204; J3301; J3490; J9999 ==

== ENCOUNTER 2025-03-04 05:00 | Outpatient (RCR) | payer MEDICARE, OTHER, SELFPAY | END 2025-04-02 23:59 | disposition home or self-care (01) | LOC: TPT 05:00 | PROVIDERS: PCP Family Medicine; Visit Provider Student in an Organized Health Care Education/Training Program | DX: M70.62 Trochanteric bursitis, left hip (principal) | CPT/HCPCS: 97110; 97161 ==

== ENCOUNTER → 2025-03-07 09:05 | Outpatient (BNVA) | payer MEDICARE, OTHER, SELFPAY | PROVIDERS: PCP Family Medicine; Visit Provider Podiatrist Foot & Ankle Surgery | DX: M79.672 Pain in left foot (principal); G57.62 Lesion of plantar nerve, left lower limb | CPT/HCPCS: 73630; 99204 ==

== ENCOUNTER → 2025-03-12 14:43 | Outpatient (BNVA) | payer MEDICARE, OTHER, SELFPAY | PROVIDERS: PCP Family Medicine; Visit Provider Internal Medicine | DX: I25.10 Atherosclerotic heart disease of native coronary artery without angina pectoris (principal); I12.9 Hypertensive chronic kidney disease with stage 1 through stage 4 chronic kidney disease, or unspecified chronic kidney disease; E10.22 Type 1 diabetes mellitus with diabetic chronic kidney disease; N18.30 Chronic kidney disease, stage 3 unspecified; Z79.4 Long term (current) use of insulin; G47.33 Obstructive sleep apnea (adult) (pediatric); Z79.01 Long term (current) use of anticoagulants; Z95.5 Presence of coronary angioplasty implant and graft; Z87.891 Personal history of nicotine dependence | CPT/HCPCS: 99213 ==

== ENCOUNTER 2025-04-03 05:00 | Outpatient (RCR) | payer MEDICARE, OTHER, SELFPAY | END 2025-05-03 23:59 | disposition home or self-care (01) | LOC: TPT 05:00 | PROVIDERS: PCP Family Medicine; Visit Provider Student in an Organized Health Care Education/Training Program | DX: M70.62 Trochanteric bursitis, left hip (principal) | CPT/HCPCS: 97110 ==

== ENCOUNTER 2025-05-04 05:00 | Outpatient (RCR) | payer MEDICARE, OTHER, SELFPAY | END 2025-06-01 09:43 | disposition home or self-care (01) | LOC: TPT 05:00 | PROVIDERS: PCP Family Medicine; Visit Provider Student in an Organized Health Care Education/Training Program | DX: M70.62 Trochanteric bursitis, left hip (principal) | CPT/HCPCS: 97110 ==

== ENCOUNTER → 2025-05-29 14:32 | Outpatient (BNVA) | payer MEDICARE, OTHER, SELFPAY | PROVIDERS: PCP Family Medicine; Visit Provider Student in an Organized Health Care Education/Training Program | DX: M70.62 Trochanteric bursitis, left hip (principal) | CPT/HCPCS: 99213 ==

== ENCOUNTER → 2025-08-13 11:05 | Outpatient (BNVA) | payer MEDICARE, OTHER, SELFPAY | PROVIDERS: PCP Family Medicine; Visit Provider Family Medicine | DX: E78.5 Hyperlipidemia, unspecified (principal); I10 Essential (primary) hypertension | CPT/HCPCS: 80053; 80061 ==

== ENCOUNTER → 2025-09-11 14:45 | Outpatient (BNVA) | payer MEDICARE, OTHER, SELFPAY | PROVIDERS: PCP Family Medicine; Visit Provider Internal Medicine | DX: E78.5 Hyperlipidemia, unspecified (principal); I25.10 Atherosclerotic heart disease of native coronary artery without angina pectoris; I13.0 Hypertensive heart and chronic kidney disease with heart failure and stage 1 through stage 4 chronic kidney disease, or unspecified chronic kidney disease; I50.32 Chronic diastolic (congestive) heart failure; N18.2 Chronic kidney disease, stage 2 (mild) | CPT/HCPCS: 99214 ==

== ENCOUNTER → 2025-09-26 08:36 | Outpatient (BNVA) | payer MEDICARE, OTHER, SELFPAY | PROVIDERS: PCP Family Medicine; Visit Provider Nurse Practitioner Family | DX: R05.9 Cough, unspecified (principal) | CPT/HCPCS: 87400; 87426 ==